=== PATIENT | male | born 1985 | race Hispanic/Latino ===

== ENCOUNTER 2017-05-20 11:17 | Inpatient (IN) | payer MEDICAID, OTHER ==
[2017-05-20 11:20] VITALS: BMI 24.3
--- NOTE | 2017-05-20 11:25 | ED PDOC ---
HPI: Psych/Substance Abuse Time Seen by Provider: 05/20/17 11:24 Chief Complaint (Provider): crisis eval History Per: Patient, EMS Additional Complaint(s): 32 year old male presents to ED for crisis eval. Patient states he is feeling suicidal because he lives with his mother and she has bipolar disorder and, " she drives me crazy." Patient offers no acute medical complaints at this time. He denies alcohol or drug use. Patient states his plan would be to overdose on his meds. Past Medical History Reviewed: Historical Data Vital Signs: Last Vital Signs Temp 98.6 F 05/20/17 11:19 Pulse 74 05/20/17 11:19 Resp 16 05/20/17 11:19 BP 122/81 05/20/17 11:19 Pulse Ox 100 05/20/17 11:19 - Medical History PMH: Anxiety, Back Problems (scoliosis), Depression, Hypercholesterolemia, Schizophrenia - Surgical History Surgical History: No Surg Hx - Family History Family History: States: No Known Family Hx - Living Arrangements Living Arrangements: With Family - Social History Current smoker - smoking cessation education provided: No Alcohol: None Drugs: Denies - Home Medications Home Medications: Ambulatory Orders Medication Instructions Recorded Benztropine Mesylate [Cogentin] 1 mg PO HS 09/24/14 FLUoxetine [Prozac] 40 mg PO HS 09/24/14 Risperidone [Risperdal] 3 mg PO HS 09/24/14 Albuterol HFA [Ventolin HFA 90 1 puff IH Q4 PRN 03/16/16 mcg/actuation (8 g)] Fluticasone Propionate [Flonase] 1 spr NS BID PRN 03/16/16 Loratadine [Claritin] 10 mg PO DAILY PRN 03/16/16 Montelukast [Singulair] 10 mg PO HS 03/16/16 Olopatadine HCl [Pataday] 2.5 ml OU ASDIR #1 drops 04/26/16 - Allergies Allergies/Adverse Reactions: Allergies Allergy/AdvReac Type Severity Reaction Status Date / Time No Known Allergies Allergy Verified 08/19/15 23:00 Review of Systems ROS Statement: Except As Marked, All Systems Reviewed And Found Negative Psych: Positive for: Suicidal ideation Physical Exam - Reviewed Nursing Documentation Reviewed: Yes Vital Signs Reviewed: Yes - Physical Exam Appears: Positive for: Well, Non-toxic, No Acute Distress Skin: Negative for: Rash Eye Exam: Positive for: Normal appearance Cardiovascular/Chest: Positive for: Regular Rate, Rhythm Respiratory: Positive for: Normal Breath Sounds Gastrointestinal/Abdominal: Positive for: Soft. Negative for: Tenderness, Distended, Guarding, Rebound Neurologic/Psych: Positive for: Alert, Oriented - Laboratory Results Result Diagrams: 05/20/17 11:45 05/20/17 11:45 - ECG O2 Sat by Pulse Oximetry: 100 Pulse Ox Interpretation: Normal Medical Decision Making Medical Decision Makin32 year old here for crisis eval Plan: Crisis consult Patient was seen at bedside by crisis counselor, he does not need 1:1. As per crisis counselor and psychiatrist automation lead, Dr. Chaudhary, patient does meet criteria for psych admission. Plan: CBC CMP UA UDS BAL CXR Diagnostic test results were reviewed. Patient has UTI. Initial dose of Cipro 500 mg given in ED. Order was written to administer 500 mg Cipro twice a day while admitted. Patient is medically stable for psychiatric admission. Disposition - Clinical Impression Clinical Impression: Schizoaffective disorder, Urinary tract infection - Patient ED Disposition Is Patient to be Admitted: Yes - Disposition Disposition Time: 14:06 Condition: STABLE - Pt Status Changed To: Hospital Disposition Of: Inpatient - Admit Certification Admit to Inpatient:: After my assessment, the patient will require hospitalization for at least two midnights. This is because of the severity of symptoms shown, intensity of services needed, and/or the medical risk in this patient being treated as an outpatient. Results - Lab Results Lab Results: 05/20/17 05/20/17 05/20/17 11:45 11:45 11:45 WBC 6.4 RBC 5.03 Hgb 15.2 Hct 45.1 MCV 89.7 MCH 30.2 MCHC 33.6 RDW 12.9 Plt Count 211 MPV 9.4 Neut % (Auto) 67.3 Lymph % (Auto) 21.1 Cottle % (Auto) 7.5 Eos % (Auto) 3.5 Baso % (Auto) 0.6 Neut # 4.3 Lymph # 1.4 Cottle # 0.5 Eos # 0.2 Baso # 0.0 Sodium Potassium Chloride Carbon Dioxide Anion Gap BUN Creatinine Est GFR ( Amer) Est GFR (Non-Af Amer) Random Glucose Calcium Total Bilirubin AST ALT Alkaline Phosphatase Total Protein Albumin Globulin Albumin/Globulin Ratio Urine Color Yellow Urine Clarity Cloudy Urine pH 8.0 Ur Specific [place] 1.021 Urine Protein 30 Urine Glucose (UA) Neg Urine Ketones Negative Urine Blood Negative Urine Nitrate Negative Urine Bilirubin Negative Urine Urobilinogen 0.2-1.0 Ur Leukocyte Esterase Neg Urine RBC (Auto) 4 H Urine WBC Clumps (Auto) Few H Urine Microscopic WBC 22 H Urine Bacteria Rare Urine Yeast (Budding) Many H Urine Opiates Screen Negative Urine Methadone Screen Negative Ur Barbiturates Screen Negative Ur Phencyclidine Scrn Negative Ur Amphetamines Screen Negative U Benzodiazepines Scrn Negative U Oth Cocaine Metabols Negative U Cannabinoids Screen Negative Alcohol, Quantitative 05/20/17 11:45 WBC RBC Hgb Hct MCV MCH MCHC RDW Plt Count MPV Neut % (Auto) Lymph % (Auto) Cottle % (Auto) Eos % (Auto) Baso % (Auto) Neut # Lymph # Cottle # Eos # Baso # Sodium 139 Potassium 4.2 Chloride 104 Carbon Dioxide 24 Anion Gap 15 BUN 15 Creatinine 0.8 Est GFR ( Amer) > 60 Est GFR (Non-Af Amer) > 60 Random Glucose 92 Calcium 9.5 Total Bilirubin 1.8 H AST 77 H ALT 68 Alkaline Phosphatase 79 Total Protein 8.0 Albumin 4.7 Globulin 3.3 Albumin/Globulin Ratio 1.4 Urine Color Urine Clarity Urine pH Ur Specific [place] Urine Protein Urine Glucose (UA) Urine Ketones Urine Blood Urine Nitrate Urine Bilirubin Urine Urobilinogen Ur Leukocyte Esterase Urine RBC (Auto) Urine WBC Clumps (Auto) Urine Microscopic WBC Urine Bacteria Urine Yeast (Budding) Urine Opiates Screen Urine Methadone Screen Ur Barbiturates Screen Ur Phencyclidine Scrn Ur Amphetamines Screen U Benzodiazepines Scrn U Oth Cocaine Metabols U Cannabinoids Screen Alcohol, Quantitative < 10
[2017-05-20 12:03] LABS: BASO % 0.6 % (0.0-2.0); EOS # 0.2 K/uL (0.0-0.7); EOS % 3.5 % (0.0-4.0); HEMOGLOBIN 15.2 g/dL (12.0-18.0); LYMPH # 1.4 K/uL (1.0-4.3); LYMPH % 21.1 % (20.0-40.0); MEAN CELL VOLUME 89.7 fl (80.0-94.0); MEAN CORPUSCULAR HEMOGLOBIN 30.2 pg (27.0-31.0); MEAN CORPUSCULAR HGB CONC 33.6 g/dL (33.0-37.0); MEAN PLATELET VOLUME 9.4 fl (7.2-11.7); MONO # 0.5 K/uL (0.0-0.8); MONO % 7.5 % (0.0-10.0); NEUT # 4.3 K/uL (1.8-7.0); NEUT % 67.3 % (50.0-75.0); NRBC % 0.2 % (0.0-0.0); RBC 5.03 Mil/uL (4.40-5.90); RED CELL DISTRIBUTION WIDTH 12.9 % (11.5-14.5); WHITE BLOOD COUNT 6.4 K/uL (4.8-10.8)
[2017-05-20 12:08] LABS: URINE BACTERIA RARE (<OCC); URINE BILIRUBIN NEGATIVE (NEGATIVE); URINE BLOOD NEGATIVE (NEGATIVE); URINE CLARITY CLOUDY (Clear); URINE COLOR YELLOW (YELLOW); URINE GLUCOSE (UA) NEG (Normal); URINE LEUKOCYTE ESTERASE NEG Leu/uL (Negative); URINE NITRATE NEGATIVE (NEGATIVE); URINE PROTEIN 30 mg/dL (NEGATIVE); URINE UROBILINOGEN 0.2-1.0 mg/dL (0.2-1.0); WBC CLUMPS FEW /hpf
[2017-05-20 12:14] LABS: ALB/GLOB RATIO 1.4 (1.0-2.1); ALBUMIN 4.7 g/dL (3.5-5.0); ALT/SGPT 68 U/L (21-72); AST/SGOT 77 U/L (17-59); BLOOD UREA NITROGEN 15 mg/dl (9-20); CALCIUM 9.5 mg/dL (8.4-10.2); GFR AFRICAN-AMERICAN > 60; GFR NON-AFRICAN AMERICAN > 60
--- NOTE | 2017-05-20 12:28 | RAD ---
HISTORY: clearance COMPARISON: Comparison made with prior study 03/15/2016 FINDINGS: LUNGS: Poor inspiration with low lung volumes, mild crowded bronchovascular markings and mild bibasilar atelectasis. PLEURA: No significant pleural effusion identified, no pneumothorax apparent. CARDIOVASCULAR: Heart size is upper limits of normal/ borderline enlarged OSSEOUS STRUCTURES: No significant abnormalities. VISUALIZED UPPER ABDOMEN: Normal. OTHER FINDINGS: None. IMPRESSION: Poor inspiration with low lung volumes, mild crowded bronchovascular markings and mild bibasilar atelectasis.
[2017-05-20 12:32] LABS: BARBITURATES, UR NEGATIVE (NEGATIVE); BENZODIAZEPINES, UR NEGATIVE (NEGATIVE); OPIATES, UR NEGATIVE (NEGATIVE); PHENCYCLIDINE, UR NEGATIVE (NEGATIVE)
[2017-05-20 14:08] VITALS: O2SAT 100
[2017-05-20] MEDS ORDERED: Magnesium Hydroxide Susp 30 ml UD PO PRN (14:41)
[2017-05-20] MEDS ORDERED: Alum-Mag Hydrox-Simethicone Susp (30 mL) PO PRN (14:41)
[2017-05-20] MEDS ORDERED: DiphenhydrAMINE 50 mg/ml Inj IM PRN (14:41)
[2017-05-20 17:52] LABS: HDL CHOLESTEROL 48 MG/DL (30-70)
[2017-05-20 18:03] LABS: LDL CHOLESTEROL 101 mg/dL (0-129)
[2017-05-21 08:04] LABS: T4 7.74 ug/dl (5.5-11.0)
[2017-05-21] MEDS ORDERED: Risperidone M tab 1 MG PO SCH (09:00)
--- NOTE | 2017-05-21 12:40 | PCM.PSYCH ---
Initial Psychiatric Evaluation - Initial Psychiatric Evaluation Type of Admission: Voluntary Legal Status: Capacity Chief Complaint (in patient's own words): i just need to sleep Patient's Reaction to Hospitalization: cooperative History of Present Illness and Precipitating Events: 32 male with history of schizoaffective disorder. he is presenting for admission due to lack of sleep. states his mother is manic and not sleeping and keeping him awake for the last three days. pt reports due to lack of sleep he is becoming paranoid, agitated and acutely suicidal. pt states he does not need a medication change and is hopeful he will feel better when he sleep. he did sleep last night and states he does not feel suicidal currently. Current Medications: Active Medications Generic Name Dose Route Start Last Admin Trade Name Freq PRN Reason Stop Dose Admin Acetaminophen 650 mg 05/20/17 14:41 05/21/17 08:27 Tylenol 325mg Tab PO 650 mg Q4 PRN Administration Pain, moderate (4-7) Al Hydrox/Mg Hydrox/Simethicone 30 ml 05/20/17 14:41 Maalox Plus 30 Ml PO Q4 PRN Dyspepsia Benztropine Mesylate 1 mg 05/20/17 22:00 05/20/17 21:01 Cogentin PO 1 mg HS ELMA Administration Ciprofloxacin 500 mg 05/20/17 17:00 05/21/17 08:26 Cipro PO 500 mg BID ELMA Administration Diphenhydramine HCl 50 mg 05/20/17 14:41 Benadryl IM Q6 PRN Extrapyramidal S/S Unable PO Diphenhydramine HCl 50 mg 05/20/17 14:41 Benadryl PO Q6 PRN Extrapyramidal Symptoms Fluoxetine HCl 40 mg 05/21/17 09:00 05/21/17 08:27 Prozac PO 40 mg DAILY ELMA Administration Haloperidol 5 mg 05/20/17 14:41 Haldol PO Q4 PRN Agitation Haloperidol Lactate 5 mg 05/20/17 14:41 Haldol IM Q4 PRN Agitation, Unable to Take PO Lorazepam 2 mg 05/20/17 14:41 Ativan IM Q4 PRN Anxiety/Agitation,Unable PO Lorazepam 2 mg 05/20/17 14:41 Ativan PO Q4 PRN Anxiety/Agitation Magnesium Hydroxide 30 ml 05/20/17 14:41 Milk Of Magnesia PO HS PRN Constipation Risperidone 3 mg 05/20/17 22:00 05/20/17 21:01 Risperdal Tab PO 3 mg HS ELMA Administration Trazodone HCl 50 mg 05/20/17 14:59 Desyrel PO HS PRN Insomnia Past Psychiatric History - Past Psychiatric History Previous Treatment History: Inpatient Prior Professional Help: has providers, feels hes stable on meds History of Abuse: denies History of ETOH/Drug Use: denies use of alcohol, tobacco or other illicit substances History of Family Illness: mother has schizoaffectve disorder Pertinent Medical Hx (Current Medical&Sleep Prob, Allergies): Allergies Allergy/AdvReac Type Severity Reaction Status Date / Time No Known Allergies Allergy Verified 08/19/15 23:00 Benztropine Mesylate [Cogentin] 1 mg PO HS 09/24/14 FLUoxetine [Prozac] 40 mg PO HS 09/24/14 Risperidone [Risperdal] 3 mg PO HS 09/24/14 Albuterol HFA [Ventolin HFA 90 mcg/actuation (8 g)] 1 puff IH Q4 PRN 03/16/16 Fluticasone Propionate [Flonase] 1 spr NS BID PRN 03/16/16 Loratadine [Claritin] 10 mg PO DAILY PRN 03/16/16 Montelukast [Singulair] 10 mg PO HS 03/16/16 Olopatadine HCl [Pataday] 2.5 ml OU ASDIR #1 drops 04/26/16 Review of Systems - Psychiatric Psychiatric: As Per HPI, Abnormal Sleep Pattern, Anxiety, Difficulty Concentrating, Irritability, Suicidal Ideation (denies at this time, but was saying he would kill himself if he returned home) Mental Status Examination - Personal Presentation Personal Presentation: Looks stated age Additional comments: unshaven, unkempt - Affect Affect: Constricted - Motor Activity Motor Activity: Calm - Reliability in Providing Information Reliability in Providing Information: Fair - Speech Speech: Organized - Mood Mood: Depressed - Formal Thought Process Formal Thought Process: No Impairment - Hallucinations/Delusions Hallucinations: Visual - Obsessions/Compulsions Obsessions: No Compulsions: No - Cognitive Functions Orientation: Person, Place, Situation, Time Sensorium: Alert Attention/Concentration: Attentive Abstract Thinking: [place] Estimate of Intelligence: Average Judgement: Intact, as evidence by: Insight regarding need for hospitalization Memory: Recent intact, as evidence by: Ability to recall events of the day, Remote intact, as evidenced by: Abilit to recall sig. life events - Risk Risk: Suicidal (denies current plan or intent) - Strength & Assets Inventory Strength & Assets Inventory: Employment history, Cooperative - Limitations Limitations: Other (family members mental illness is active) DSM 5 DX - DSM 5 DSM 5 Diagnosis: schizoaffective disorder, depressive type - Recommended/Plan of Treatment Treatment Recommendations and Plan of Treatment: admit to [facility] for safety and observation gather collateral information provide supportive therapy adjust medications- will continue home meds disposition planning hospitalist consult Projected ELOS: 3-5 days Prognosis: fair - Smoking Cessation Smoking Cessation Initiated: No Reason for not providing: does not smoke
--- NOTE | 2017-05-21 14:17 | CP.PCM.CON ---
History of Present Illness - History of Present Illness History of Present Illness: Reason for consult: per hospital protocol HPI 32 year old male with no past medical history admitted to psychiatry for schizoaffective disorder. No other complaints at this time. ROS: per HPI, 12 systems reviewed and negative PMH: denies PSH: denies FH: denies SH: denies tobacco, ETOH, IVDU Meds: as below Allergies: NKDA Vitals: reviewed and currently stable Exam: GEN: WDWN, alert, cooperative HEENT: NCAT, PERRL, EOMI NECK: supple, no JVD, no lymphadenopathy CARDIAC: +S1S2 RRR LUNG: CTAB No WRR ABD: SOFT NT ND BSX4 NO MASSES NO HSM EXT: +pedal pulses, equal strength NEURO: AAOx3 SKIN warm, dry PSYCH normal mood, normal affect Labs: 05/20/17 11:45 05/20/17 11:45 Active Medications: Allergies No Known Allergies Allergy (Verified 08/19/15 23:00) Height & Weight Height 6 ft 4 in Weight 200 lb Start Date/Time Active Medications 05/20/17 14:41 Acetaminophen [Tylenol 325mg tab] 650 mg PO Q4 PRN Aluminum Hydroxide/Magnesium [Maalox Plus 30 ml] 30 ml PO Q4 PRN DiphenhydrAMINE [Benadryl] 50 mg IM Q6 PRN DiphenhydrAMINE [Benadryl] 50 mg PO Q6 PRN Haloperidol Lactate [Haldol] 5 mg IM Q4 PRN Haloperidol [Haldol] 5 mg PO Q4 PRN LORazepam [Ativan] 2 mg IM Q4 PRN LORazepam [Ativan] 2 mg PO Q4 PRN Magnesium Hydroxide [Milk Of Magnesia] 30 ml PO HS PRN 05/20/17 14:59 traZODone [Desyrel] 50 mg PO HS PRN 05/20/17 17:00 Ciprofloxacin [Cipro] 500 mg PO BID 05/20/17 22:00 Benztropine [Cogentin] 1 mg PO HS risperiDONE [RisperDAL Tab] 3 mg PO HS 05/21/17 09:00 FLUoxetine [Prozac] 40 mg PO DAILY 05/21/17 17:45 Ibuprofen [Motrin Tab] 600 mg PO Q6 PRN Assessment and Plan: 32 year old male with no past medical history admitted to psychiatry for schizoaffective disorder. No other complaints at this time. Schizoaffective Disorder management per psych Past Patient History - Past Social History Alcohol: None Drugs: Denies - CARDIAC Hx Hypercholesterolemia: Yes - PULMONARY Hx Tuberculosis: No - NEUROLOGICAL Hx Seizures: No - HEENT Hx HEENT Problems: No - RENAL Hx Chronic Kidney Disease: No - ENDOCRINE/METABOLIC Hx Endocrine Disorders: No - HEMATOLOGICAL/ONCOLOGICAL Hx Human Immunodeficiency Virus (HIV): No - INTEGUMENTARY Hx Dermatological Problems: No - MUSCULOSKELETAL/RHEUMATOLOGICAL Hx Musculoskeletal Disorders: Yes - GASTROINTESTINAL Hx Gastrointestinal Disorders: No - GENITOURINARY/GYNECOLOGICAL Hx Sexually Transmitted Disorders: No - PSYCHIATRIC Hx Depression: Yes - SURGICAL HISTORY Hx Surgeries: No - ANESTHESIA Hx Anesthesia: Yes Meds Allergies/Adverse Reactions: Allergies Allergy/AdvReac Type Severity Reaction Status Date / Time No Known Allergies Allergy Verified 08/19/15 23:00 - Medications Medications: Current Medications Acetaminophen (Tylenol 325mg Tab) 650 mg PO Q4 PRN PRN Reason: Pain, moderate (4-7) Last Admin: 05/21/17 08:27 Dose: 650 mg Al Hydrox/Mg Hydrox/Simethicone (Maalox Plus 30 Ml) 30 ml PO Q4 PRN PRN Reason: Dyspepsia Benztropine Mesylate (Cogentin) 1 mg PO HS [facility] Last Admin: 05/20/17 21:01 Dose: 1 mg Ciprofloxacin (Cipro) 500 mg PO BID [facility] Last Admin: 05/21/17 08:26 Dose: 500 mg Diphenhydramine HCl (Benadryl) 50 mg IM Q6 PRN PRN Reason: Extrapyramidal S/S Unable PO Diphenhydramine HCl (Benadryl) 50 mg PO Q6 PRN PRN Reason: Extrapyramidal Symptoms Fluoxetine HCl (Prozac) 40 mg PO DAILY [facility] Last Admin: 05/21/17 08:27 Dose: 40 mg Haloperidol (Haldol) 5 mg PO Q4 PRN PRN Reason: Agitation Haloperidol Lactate (Haldol) 5 mg IM Q4 PRN PRN Reason: Agitation, Unable to Take PO Lorazepam (Ativan) 2 mg IM Q4 PRN PRN Reason: Anxiety/Agitation,Unable PO Lorazepam (Ativan) 2 mg PO Q4 PRN PRN Reason: Anxiety/Agitation Magnesium Hydroxide (Milk Of Magnesia) 30 ml PO HS PRN PRN Reason: Constipation Risperidone (Risperdal Tab) 3 mg PO HS [facility] Last Admin: 05/20/17 21:01 Dose: 3 mg Trazodone HCl (Desyrel) 50 mg PO HS PRN PRN Reason: Insomnia Results - Vital Signs Recent Vital Signs: Last Vital Signs Temp 97.6 F 05/20/17 14:02 Pulse 78 05/20/17 14:02 Resp 20 05/20/17 14:02 BP 128/78 05/20/17 14:02 Pulse Ox 100 05/20/17 14:07 - Labs Result Diagrams: 05/20/17 11:45 05/20/17 11:45 Labs: Laboratory Results - last 24 hr 05/20/17 05/20/17 05/21/17 16:30 16:30 06:00 Hemoglobin A1c 5.9 Triglycerides 36 64 D Cholesterol 175 176 LDL Cholesterol Direct 101 98 HDL Cholesterol 48 45 Thyroxine (T4) 7.74
[2017-05-22 12:42] VITALS: BP 123/76; PULSE 70; RESP 18; TEMP 97.7
--- NOTE | 2017-05-22 13:41 | PCM.PYCHDC ---
Mental Status Examination - Mental Status Examination Orientation: Person, Place, Situation, Time Memory: Intact Mood: Neutral Affect: Broad Speech: Appropriate Attention: WNL Concentration: WNL Association: WNL Fund of Knowledge: WNL Formal Thought Process: No Impairment Description of patient's judgement and insight: fair Psychotic Thoughts and Behaviors: denies any a/v hallucinations Suicidal Ideation: No Current Homicidal Ideation?: No Plan: pt denies any suicidal or homicidal thoughts/plans or intent Discharge Summary - Discharge Note Reason for Hospitalization: pt reported not being able to sleep and feeling suicidal Laboratory Data: Abnormal Lab Results 05/21/17 06:00 Hemoglobin A1c 5.9 Consultations:: List each consultation separately and include: 1. Reason for request. 2. Findings. 3. Follow-up Consultations: seen by hospitalist Summary of Hospital Course include:: 1. Description of specific treatment plan utilized for patients during their course of treatmen. 2. Summarize the time- course for resolution of acute symptoms and/or regressed behaviors. 3. Describe issues identified and worked on during hospitalization. 4. Describe medication utilized. 5. Describe medical problems identified and treated. 6. Reassessment of suicide risk Summary of Hospital Course: 32 male with history of schizoaffective disorder. he is presenting for admission due to lack of sleep. states his mother is manic and not sleeping and keeping him awake for the last three days. pt reports due to lack of sleep he is becoming paranoid, agitated and acutely suicidal. pt states he does not need a medication change and is hopeful he will feel better when he sleep. he did sleep last night and states he does not feel suicidal currently. hospital course pt was admitted to [facility] and oriented to the unit. pt was placed on routine safety protocols. pt was started on his home medications. he was able to sleep on the unit. he was seen in treatment team and asked to be discharged so he could return to work on 05/23/17. at the time of discharge his thoughts were logical and his mood was neutral. he was denying any psychotic symptoms. he was denying any suicidal or homicidal thoughts. he was agreeing to follow up with his outpatient providers after his discharge. - Final Diagnosis (DSM 5) Condition upon Discharge: STABLE DSM 5: schizoaffective disorder Disposition: HOME/ ROUTINE Follow-up Treatment Plan: follow up with aftercare appointments as directed take medications as prescribed do not use alcohol, tobacco or other illicit substances call 911 if any suicidal or homicidal thoughts see your primary care doctor regarding your uti that was treated here by hospitalist pt has his psych meds at home and no scripts given except for enough to complete course of cipro Prescriptions/Medication Reconciliation: Ciprofloxacin [Cipro] 500 mg PO BID #10 tab - Smoking Cessation Smoking Cessation Medication prescribed: No Reason for not providing: doesn't smoke - Antipsychotic Medications Pt discharged on 2 or more routine antipsychotic medications: No
== END 2017-05-22 14:19 | disposition home or self-care (01) | DRG 430 ==
LOC: H.ER 11:17 → H.ERHOLD 12:40 → H.PSYCH 14:05
PROVIDERS: ADMIT Psychiatry & Neurology Psychiatry; ATTEND Psychiatry & Neurology Psychiatry
PROC: GZ51ZZZ Individual Psychotherapy, Behavioral (ICD-10-PCS; principal; 2017-05-20)
DX: F25.1 Schizoaffective disorder, depressive type (principal); R45.851 Suicidal ideations; M41.9 Scoliosis, unspecified; N39.0 Urinary tract infection, site not specified; E78.00 Pure hypercholesterolemia, unspecified; F31.9 Bipolar disorder, unspecified; F41.9 Anxiety disorder, unspecified; F32.9 Major depressive disorder, single episode, unspecified

== ENCOUNTER 2017-06-25 13:42 | Emergency (ER) | payer MEDICAID, OTHER ==
[2017-06-25 13:42] VITALS: BMI 24.3
[2017-06-25 13:47] VITALS: BP 142/91; PULSE 79; RESP 18; TEMP 99; O2SAT 99
--- NOTE | 2017-06-25 14:21 | ED PDOC ---
HPI: Psych/Substance Abuse Time Seen by Provider: 06/25/17 14:10 Chief Complaint (Nursing): Psychiatric Evaluation Chief Complaint (Provider): DEPRESSION Additional Complaint(s): 32yo M in Ed for eval of mental health d/o. EMS called to household. pt called EMS stating that his mother is suicidal, however when EMS arrived stated that she isn't suicidal. EMS explained they can't take mother against her will if not posing threat to self or others, pt became upset and stated he wanted to kill himself. Pt in ED denies wanting to hurt himself. admits he is having trouble with his mother and wants mother to move out of home. Past Medical History Reviewed: Historical Data, Nursing Documentation, Vital Signs Vital Signs: Last Vital Signs Temp 99.0 F 06/25/17 13:43 Pulse 79 06/25/17 13:43 Resp 18 06/25/17 13:43 BP 142/91 H 06/25/17 13:43 Pulse Ox 99 06/25/17 13:43 - Medical History PMH: Anxiety, Back Problems (scoliosis), Depression, Hypercholesterolemia, Schizophrenia Denies: Diabetes, Hepatitis, HIV, HTN, Chronic Kidney Disease, Seizures, Sexually Transmitted Disease - Family History Family History: States: Unknown Family Hx - Immunization History Hx Tetanus Toxoid Vaccination: No Hx Influenza Vaccination: No Hx Pneumococcal Vaccination: No - Home Medications Home Medications: Ambulatory Orders Medication Instructions Recorded Benztropine Mesylate [Cogentin] 1 mg PO HS 09/24/14 FLUoxetine [Prozac] 40 mg PO HS 09/24/14 Risperidone [Risperdal] 3 mg PO HS 09/24/14 Albuterol HFA [Ventolin HFA 90 1 puff IH Q4 PRN 03/16/16 mcg/actuation (8 g)] Fluticasone Propionate [Flonase] 1 spr NS BID PRN 03/16/16 Loratadine [Claritin] 10 mg PO DAILY PRN 03/16/16 Montelukast [Singulair] 10 mg PO HS 03/16/16 Olopatadine HCl [Pataday] 2.5 ml OU ASDIR #1 drops 04/26/16 Ciprofloxacin [Cipro] 500 mg PO BID #10 tab 05/22/17 Ibuprofen [Motrin Tab] 600 mg PO Q6 PRN tab 05/22/17 - Allergies Allergies/Adverse Reactions: Allergies Allergy/AdvReac Type Severity Reaction Status Date / Time No Known Allergies Allergy Verified 08/19/15 23:00 Review of Systems ROS Statement: Except As Marked, All Systems Reviewed And Found Negative Psych: Negative for: Anxiety, Depression, Psychosis, Suicidal ideation, Withdrawal Physical Exam - Reviewed Nursing Documentation Reviewed: Yes Vital Signs Reviewed: Yes - Physical Exam Appears: Positive for: Well, Non-toxic, No Acute Distress Skin: Positive for: Normal Color, Warm, DRY Eye Exam: Positive for: Normal appearance Cardiovascular/Chest: Positive for: Regular Rate, Rhythm Respiratory: Positive for: CNT, Normal Breath Sounds Gastrointestinal/Abdominal: Positive for: Normal Exam, Bowel Sounds, Soft Neurologic/Psych: Positive for: Alert, Oriented, Mood/Affect - ECG O2 Sat by Pulse Oximetry: 99 Medical Decision Making Medical Decision Making: pt was evulated by crisis and cleared for d/c by [facility] Disposition - Clinical Impression Clinical Impression: Adjustment disorder - Patient ED Disposition Is Patient to be Admitted: No Counseled Patient/Family Regarding: Diagnosis, Need For Followup - Disposition Disposition: Routine/Home Disposition Time: 14:23 Condition: STABLE Instructions: Mood Disorders (ED) Forms: [email or web address] ([place]in)
== END 2017-06-25 15:20 | disposition home or self-care (01) ==
LOC: H.ER 13:42
DX: F43.20 Adjustment disorder, unspecified (principal)

== ENCOUNTER 2017-11-22 16:46 | Inpatient (IN) | payer MEDICAID, OTHER ==
[2017-11-22 16:47] VITALS: BMI 24.3
--- NOTE | 2017-11-22 17:42 | ED PDOC ---
HPI: Psych/Substance Abuse Time Seen by Provider: 11/22/17 17:05 Chief Complaint (Nursing): Psychiatric Evaluation Chief Complaint (Provider): SI/HI Additional Complaint(s): 32yo M in Ed for eval of SI with plan of OD on all RX at home, and HI-thoughts of hurting everyone around him without actual plan. Pt admits he has been without pysch meds x 2-3days states unable to afford it with insurance. no hallucinations. Past Medical History Reviewed: Historical Data, Nursing Documentation, Vital Signs Vital Signs: Last Vital Signs Temp 98.5 F 11/22/17 16:49 Pulse 57 L 11/22/17 17:34 Resp 18 11/22/17 17:34 BP 117/67 11/22/17 16:49 Pulse Ox 93 L 11/22/17 17:34 - Medical History PMH: Anxiety, Back Problems (scoliosis), Depression, Hypercholesterolemia, Hyperlipidemia, Schizophrenia Denies: Diabetes, Hepatitis, HIV, HTN, Chronic Kidney Disease, Seizures, Sexually Transmitted Disease - Family History Family History: States: Unknown Family Hx - Immunization History Hx Tetanus Toxoid Vaccination: No Hx Influenza Vaccination: No Hx Pneumococcal Vaccination: No - Home Medications Home Medications: Ambulatory Orders Medication Instructions Recorded Benztropine Mesylate [Cogentin] 1 mg PO HS 09/24/14 FLUoxetine [Prozac] 40 mg PO HS 09/24/14 Risperidone [Risperdal] 3 mg PO HS 09/24/14 Albuterol HFA [Ventolin HFA 90 1 puff IH Q4 PRN 03/16/16 mcg/actuation (8 g)] Fluticasone Propionate [Flonase] 1 spr NS BID PRN 03/16/16 Loratadine [Claritin] 10 mg PO DAILY PRN 03/16/16 Montelukast [Singulair] 10 mg PO HS 03/16/16 Olopatadine HCl [Pataday] 2.5 ml OU ASDIR #1 drops 04/26/16 Ciprofloxacin [Cipro] 500 mg PO BID #10 tab 05/22/17 Ibuprofen [Motrin Tab] 600 mg PO Q6 PRN tab 05/22/17 - Allergies Allergies/Adverse Reactions: Allergies Allergy/AdvReac Type Severity Reaction Status Date / Time No Known Allergies Allergy Verified 11/22/17 16:48 Review of Systems ROS Statement: Except As Marked, All Systems Reviewed And Found Negative Psych: Positive for: Depression Physical Exam - Reviewed Nursing Documentation Reviewed: Yes Vital Signs Reviewed: Yes - Physical Exam Appears: Positive for: Well, Non-toxic, No Acute Distress Skin: Positive for: Normal Color, Warm, DRY Eye Exam: Positive for: EOMI, Normal appearance, PERRL Cardiovascular/Chest: Positive for: Regular Rate, Rhythm Respiratory: Positive for: CNT, Normal Breath Sounds Neurologic/Psych: Positive for: Alert, Oriented, Mood/Affect (falt) - Laboratory Results Result Diagrams: 11/22/17 18:00 11/22/17 18:00 - ECG O2 Sat by Pulse Oximetry: 93 - Progress ED Course And Treament: Orders Category Date Time Status ALCOHOL SERUM Stat Chem 11/22/17 17:24 Ordered COMP METABOLIC PANEL Stat Chem 11/22/17 17:24 Ordered DRUG SCREEN, URINE Stat Chem 11/22/17 17:24 Ordered Crisis Evaluation As Ordered Cons 11/22/17 17:06 Ordered CBC (WITH DIFFERENTIAL) Stat LÓPEZ 11/22/17 17:24 Ordered ED 1:1 Observation CONT Pt Care 11/22/17 17:06 Active URINALYSIS Stat URINALYSIS 11/22/17 17:24 Ordered Medical Decision Making Medical Decision Making: pt will be adm itted to [facility] floor for schizoaffective d/o stable for admission. Disposition - Clinical Impression Clinical Impression: Schizoaffective disorder - Patient ED Disposition Is Patient to be Admitted: Yes - Disposition Disposition Time: 18:44 Condition: STABLE - Pt Status Changed To: Hospital Disposition Of: Inpatient - Admit Certification Admit to Inpatient:: After my assessment, the patient will require hospitalization for at least two midnights. This is because of the severity of symptoms shown, intensity of services needed, and/or the medical risk in this patient being treated as an outpatient. - POA Present On Arrival: None
[2017-11-22 18:25] LABS: BASO # 0.1 K/uL (0.0-0.2); BASO % 0.7 % (0.0-2.0); EOS # 0.3 K/uL (0.0-0.7); HEMOGLOBIN 13.9 g/dL (12.0-18.0); LYMPH # 1.6 K/uL (1.0-4.3); LYMPH % 18.5 % (20.0-40.0); MEAN CELL VOLUME 90.3 fl (80.0-94.0); MEAN CORPUSCULAR HEMOGLOBIN 29.4 pg (27.0-31.0); MEAN CORPUSCULAR HGB CONC 32.6 g/dL (33.0-37.0); MEAN PLATELET VOLUME 9.7 fl (7.2-11.7); MONO # 0.4 K/uL (0.0-0.8); NEUT # 6.4 K/uL (1.8-7.0); NEUT % 72.8 % (50.0-75.0); RBC 4.71 Mil/uL (4.40-5.90); RED CELL DISTRIBUTION WIDTH 12.6 % (11.5-14.5); WHITE BLOOD COUNT 8.8 K/uL (4.8-10.8)
[2017-11-22 18:43] LABS: ALB/GLOB RATIO 1.2 (1.0-2.1); ALBUMIN 4.1 g/dL (3.5-5.0); ALT/SGPT 65 U/L (21-72); AST/SGOT 86 U/L (17-59); BLOOD UREA NITROGEN 12 mg/dl (9-20); CALCIUM 9.6 mg/dL (8.4-10.2); GFR AFRICAN-AMERICAN > 60; GFR NON-AFRICAN AMERICAN > 60
[2017-11-22 19:14] LABS: URINE AMORPHOUS SEDIMENT OCC /ul (<OCC); URINE BACTERIA RARE (<OCC); URINE BILIRUBIN NEGATIVE (NEGATIVE); URINE BLOOD NEGATIVE (NEGATIVE); URINE CALCIUM OXALATE CRYSTALS RARE /hpf (<OCC); URINE CLARITY CLOUDY (Clear); URINE COLOR YELLOW (YELLOW); URINE GLUCOSE (UA) NEG (Normal); URINE LEUKOCYTE ESTERASE NEG Leu/uL (Negative); URINE NITRATE NEGATIVE (NEGATIVE); URINE PROTEIN NEGATIVE (NEGATIVE); URINE UROBILINOGEN 0.2-1.0 mg/dL (0.2-1.0)
[2017-11-22 19:26] LABS: BARBITURATES, UR NEGATIVE (NEGATIVE); BENZODIAZEPINES, UR NEGATIVE (NEGATIVE); OPIATES, UR NEGATIVE (NEGATIVE); PHENCYCLIDINE, UR NEGATIVE (NEGATIVE)
[2017-11-22 19:36] VITALS: O2SAT 97
[2017-11-22] MEDS ORDERED: DiphenhydrAMINE 50 mg/ml Inj IM PRN (22:59)
[2017-11-22] MEDS ORDERED: Alum-Mag Hydrox-Simethicone Susp (30 mL) PO PRN (22:59)
[2017-11-22] MEDS ORDERED: Magnesium Hydroxide Susp 30 ml UD PO PRN (22:59)
--- NOTE | 2017-11-22 23:12 | PCM.BM ---
<Annemarie Arteaga P - Last Filed: 11/22/17 23:10> Treatment Plan Problems - Problems identified on initial assessmt Hopelessness/helplessness Date Initiated: 11/22/17 Time Initiated: 23:11 Assessment reference: NA Status: Active Medication nonadherence Date Initiated: 11/22/17 Time Initiated: 23:11 Assessment reference: NA Status: Active Treatment assets and liabiliti Patient Assests: cooperative, physically healthy, negotiates basic needs, cognitively intact Patient Liabilities: financial problems, poor support system, relationship conflicts - Milieu Protocol Maintain good personal hygiene: daily Encourage regular showers, daily Remind patient to perform daily oral care Conduct patient checks and document Observation sheet: Q15 minutes Maintain personal safety: every shift Educate patient to report safety concerns to staff, every shift Monitor environment for contraband/sharps Medication safety: Monitor for expected outcome, potential side effects: every shift, Assess barriers to learning: every shift, Assess readiness for medication education: every shift <Tyron Cao J - Last Filed: 11/24/17 15:26> Family Contact Family involvement: Family/SO is involved Family contact: Patient declines to allow family contact at present Family contact name: Pt declined - Goals for Treatment Patient goals for treatment: Pt is afraid that his medication insurance coverage is no longer in effect because 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 Pt is also concerned that him and his mother will lose their housing as pt does not have an income and his mother's was drastically cut from $800 to $200 a month. Discharge/Continuing Care - Education Needs Education Needs: Patient Medication, Patient Diagnosis/Disease Process, Patient Coping Skills, Patient Community resources, Patient Personal Hygiene/Grooming, Patient Aftercare Safety Plan - Discharge Discharge Criteria: Tolerates medication w/o severe side effects, Free of Suicidal thoughts, Free of agitation, Normal sleep pattern, Reduction of target symptoms Discharge to:: Home, With Family <Rach Webster - Last Filed: 11/27/17 10:53> - Diagnosis (1) Schizoaffective disorder Status: Acute Interventions: 11/27/17 10:53 psychotherapy pharmacotherapy
--- NOTE | 2017-11-23 08:19 | CARD ---
APPROVED REPORT EKG Measurement Heart [id number] <Conclusion> Sinus bradycardia Otherwise normal ECG
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
[2017-11-23] MEDS ORDERED: BENZTROPINE MESYLATE 1 MG PO SCH (22:00)
[2017-11-24 07:27] LABS: T4 9.12 ug/dl (5.5-11.0)
--- NOTE | 2017-11-24 14:13 | PCM.PYCHPN ---
Psychiatric Progress Note - Psychiatric Progress Note Patient seen today, length of contact: pt evaluated discussed with team chart reviewed Patient Chief Complaint: I am worried we will loose our apartment Problems Identified/Issues Discussed: pt seen on unit appears depressed, anhedonic, pt reported feeling down as he is worried about his mother condition and also because he is facing a lot of financial difficulties and worried about being homeless pt reported his thought process is better as he was restarted on the risperidone denied any currentsuicidal or homicidal ideations, denied perceptual disturbances, no reported side effects of the medications Medical Problems: pt has multiple inpatient hospitalizations DSM 5 Symptoms Update: schizoaffective disorder bipolar Medication Change: No Medical Record Reviewed: No Mental Status Examination - Cognitive Function Orientation: Person Attention: WNL Concentration: WNL Association: WNL Fund of Knowledge: Poor Decription of patient's judgement and insights: partial insight and poor judgment - Mood Mood: Depressed, Anxious - Affect Affect: Depressed - Speech Speech: Soft - Formal Thought Process Formal Thought Process: Circumstantial Psychotic Thoughts and Behaviors: pt denied ay curent perceptual disturbances, non elicited - Suicidal Ideation Suicidal Ideation: No - Homicidal Ideation Homicidal Ideation: No Goal/Treatment Plan - Goal/Treatment Plan Need for Continued Stay: Severe depression anxiety, Discharge may exacerbated symptoms Progress Toward Problem(s) and Goals/Treatment Plan: continue with prozac 40mg daily and risperidone 2mg qhs. cogentin 0.5 mg qhs group and supportive therapy
--- NOTE | 2017-11-25 10:55 | PCM.PYCHPN ---
Psychiatric Progress Note - Psychiatric Progress Note Patient seen today, length of contact: pt evaluated discussed with team chart reviewed Patient Chief Complaint: I feel better today Problems Identified/Issues Discussed: pt seen on unit appears calmer, presenting with better mood and brighter affect , pt denied side effects of medications, denied suicidal or homicidal ideations Medical Problems: pt has multiple inpatient hospitalizations DSM 5 Symptoms Update: schizoaffective disorder Medication Change: No Medical Record Reviewed: No Mental Status Examination - Cognitive Function Orientation: Person Attention: WNL Concentration: WNL Association: WNL Fund of Knowledge: Poor Decription of patient's judgement and insights: partial insight and poor judgment - Mood Mood: Depressed, Anxious - Affect Affect: Depressed - Speech Speech: Soft - Formal Thought Process Formal Thought Process: Circumstantial Psychotic Thoughts and Behaviors: pt denied ay curent perceptual disturbances, non elicited - Suicidal Ideation Suicidal Ideation: No - Homicidal Ideation Homicidal Ideation: No Goal/Treatment Plan - Goal/Treatment Plan Need for Continued Stay: Severe depression anxiety, Discharge may exacerbated symptoms Progress Toward Problem(s) and Goals/Treatment Plan: continue with prozac 40mg daily and risperidone 2mg qhs. cogentin 0.5 mg qhs group and supportive therapy pt at current time requires linkage to case managment to avoid rehospitalization Estimated Date of D/C: 12/01/17
--- NOTE | 2017-11-25 12:54 | RAD ---
HISTORY: routine COMPARISON: Chest radiograph dated 05/20/2017. TECHNIQUE: Chest PA and lateral FINDINGS: LUNGS: No active pulmonary disease. PLEURA: No significant pleural effusion identified. No pneumothorax apparent. CARDIOVASCULAR: Normal. OSSEOUS STRUCTURES: No significant abnormalities. VISUALIZED UPPER ABDOMEN: Normal. OTHER FINDINGS: None. IMPRESSION: No active disease.
--- NOTE | 2017-11-26 12:45 | PCM.PYCHPN ---
Psychiatric Progress Note - Psychiatric Progress Note Patient seen today, length of contact: pt evaluated discussed with team chart reviewed Patient Chief Complaint: I am calmer Problems Identified/Issues Discussed: pt seen on unit appears calmer, presenting with better mood and brighter affect, no changes in sleep or appetite pt denied side effects of medications, denied suicidal or homicidal ideations Medical Problems: pt has multiple inpatient hospitalizations DSM 5 Symptoms Update: schizoaffective disorder Medication Change: No Medical Record Reviewed: Yes Mental Status Examination - Cognitive Function Orientation: Person Attention: WNL Concentration: WNL Association: WNL Fund of Knowledge: Poor Decription of patient's judgement and insights: partial insight and poor judgment - Mood Mood: Depressed, Anxious - Affect Affect: Depressed - Speech Speech: Soft - Formal Thought Process Formal Thought Process: Circumstantial Psychotic Thoughts and Behaviors: pt denied ay curent perceptual disturbances, non elicited - Suicidal Ideation Suicidal Ideation: No - Homicidal Ideation Homicidal Ideation: No Goal/Treatment Plan - Goal/Treatment Plan Need for Continued Stay: Severe depression anxiety, Discharge may exacerbated symptoms Progress Toward Problem(s) and Goals/Treatment Plan: continue with prozac 40mg daily and risperidone 2mg qhs. cogentin 0.5 mg qhs group and supportive therapy pt at current time requires linkage to case management to avoid rehospitalization will attempt linking to [facility] services Estimated Date of D/C: 12/01/17
--- NOTE | 2017-11-27 10:56 | PCM.PYCHPN ---
Psychiatric Progress Note - Psychiatric Progress Note Patient seen today, length of contact: pt evaluated discussed with team chart reviewed Patient Chief Complaint: I am feeling better Problems Identified/Issues Discussed: pt seen on unit appears calmer,reported better mood , presenting with brighter affect, no changes in sleep or appetite pt denied side effects of medications, denied suicidal or homicidal ideations Medical Problems: pt has multiple inpatient hospitalizations DSM 5 Symptoms Update: schizoaffective disorder Medication Change: No Medical Record Reviewed: Yes Mental Status Examination - Cognitive Function Orientation: Person Attention: WNL Concentration: WNL Association: WNL Fund of Knowledge: Poor Decription of patient's judgement and insights: partial insight and poor judgment - Mood Mood: Anxious - Affect Affect: Constricted - Speech Speech: Appropriate - Formal Thought Process Formal Thought Process: Circumstantial Psychotic Thoughts and Behaviors: pt denied ay curent perceptual disturbances, non elicited - Suicidal Ideation Suicidal Ideation: No - Homicidal Ideation Homicidal Ideation: No Goal/Treatment Plan - Goal/Treatment Plan Need for Continued Stay: Severe depression anxiety, Discharge may exacerbated symptoms Progress Toward Problem(s) and Goals/Treatment Plan: continue with prozac 40mg daily and risperidone 2mg qhs. cogentin 0.5 mg qhs group and supportive therapy pt at current time requires linkage to case management to avoid rehospitalization will attempt linking to [facility] services Estimated Date of D/C: 12/01/17
[2017-11-27 16:29] VITALS: RESP 18
--- NOTE | 2017-11-28 13:10 | PCM.PYCHPN ---
Psychiatric Progress Note - Psychiatric Progress Note Patient seen today, length of contact: pt evaluated discussed with team chart reviewed Patient Chief Complaint: I am feeling better Problems Identified/Issues Discussed: pt seen on unit appears calmer,reported better mood , presenting with brighter affect,attending groups, compliant with treatment no changes in sleep or appetite pt denied side effects of medications, denied suicidal or homicidal ideations Medical Problems: pt has multiple inpatient hospitalizations DSM 5 Symptoms Update: schizoaffective disorder Medication Change: No Medical Record Reviewed: Yes Mental Status Examination - Cognitive Function Orientation: Person Attention: WNL Concentration: WNL Association: WNL Fund of Knowledge: Poor Decription of patient's judgement and insights: partial insight and poor judgment - Mood Mood: Anxious - Affect Affect: Constricted - Speech Speech: Appropriate - Formal Thought Process Formal Thought Process: Circumstantial Psychotic Thoughts and Behaviors: pt denied ay current perceptual disturbances, non elicited - Suicidal Ideation Suicidal Ideation: No - Homicidal Ideation Homicidal Ideation: No Goal/Treatment Plan - Goal/Treatment Plan Need for Continued Stay: Severe depression anxiety, Discharge may exacerbated symptoms Progress Toward Problem(s) and Goals/Treatment Plan: continue with prozac 40mg daily and risperidone 2mg qhs. cogentin 0.5 mg qhs group and supportive therapy pt at current time requires linkage to case management to avoid rehospitalization will attempt linking to [facility] services Estimated Date of D/C: 12/01/17
[2017-11-28 16:56] VITALS: BP 120/67; PULSE 72; TEMP 98.2
--- NOTE | 2017-11-29 09:51 | PCM.PYCHDC ---
Mental Status Examination - Mental Status Examination Orientation: Person, Place, Situation Memory: Intact Mood: Neutral Affect: Broad Speech: Appropriate Attention: WNL Concentration: WNL Association: WNL Fund of Knowledge: WN Formal Thought Process: Circumstantial Description of patient's judgement and insight: partial insight and poor judgment Psychotic Thoughts and Behaviors: pt denied ay current perceptual disturbances, non elicited Suicidal Ideation: No Current Homicidal Ideation?: No Discharge Summary - Discharge Note Reason for Hospitalization: pt with previous diagnosis of schizoaffective disorder, became depressed and having suicidal ideation after having altercation with his mother, pt also reported because of insurance problems he was not able to take his medications for three days pt stated feeling depressed and worried about his mother, denied any current suicidal or homicidal ideations Consultations:: List each consultation separately and include: 1. Reason for request. 2. Findings. 3. Follow-up Summary of Hospital Course include:: 1. Description of specific treatment plan utilized for patients during their course of treatmen. 2. Summarize the time- course for resolution of acute symptoms and/or regressed behaviors. 3. Describe issues identified and worked on during hospitalization. 4. Describe medication utilized. 5. Describe medical problems identified and treated. 6. Reassessment of suicide risk Summary of Hospital Course: PT ON ADMISSION WAS RESTARTED ON HIS MEDICATION HE HAS NOT BEEN ABLE TO TAKE FOR THREE DAYS PRIOR TO ADMISSION BECAUSE OF INSURANCE PROBLEMS PT WAS STARTED ON RISPERIDONE 2MG, PROZAC 40MG AND COGENTIN 0.5MG, NO REPORTED SIDE EFFECTS ON DISCHARGE PT MENTAL STATUS WAS STABLE, PT DENIED ANY CURRENT SUICIDAL OR HOMICIDAL IDEATIONS, DENIED PERCEPTUAL DISTURBANCES PT WAS COOPERATIVE PARTICIPATED IN TREATMENT AND ATTENDED GROUPS PT WAS CONCERNED ABOUT HIS CURRENT LIVING SUITUATION REPORTED HIS MOTHER LOOSING HER BENIFITS, [employer] WORK[employer] CONTACTED [facility] WORKER OF THE MOTHER TO LOOK INTO THE CURRENT SOCIAL STRESSORS FOR THE FAMILY - Diagnosis (1) Schizoaffective disorder Current Visit: Yes Status: Acute - Final Diagnosis (DSM 5) Condition upon Discharge: STABLE DSM 5: SCHIZOAFFECTIVE DISORDER DEPRESSED Disposition: HOME/ ROUTINE Follow-up Treatment Plan: continue with prozac 40mg daily and risperidone 2mg qhs. cogentin 0.5 mg qhs group and supportive therapy pt at current time requires linkage to case management to avoid rehospitalization will attempt linking to [facility] services Prescriptions/Medication Reconciliation: Benztropine [Cogentin] 0.5 mg PO HS 30 Days #30 tab FLUoxetine [Prozac] 40 mg PO DAILY 30 Days #60 cap risperiDONE [RisperDAL Tab] 2 mg PO HS 30 Days #30 tab - Antipsychotic Medications Pt discharged on 2 or more routine antipsychotic medications: No
== END 2017-11-29 12:31 | disposition home or self-care (01) | DRG 430 ==
LOC: H.ER 16:46 → H.ERHOLD 18:13 → H.PSYCH 22:49
PROVIDERS: ADMIT Psychiatry & Neurology Psychiatry; ATTEND Psychiatry & Neurology Psychiatry
PROC: GZHZZZZ Group Psychotherapy (ICD-10-PCS; principal; 2017-11-24)
PROC: GZ51ZZZ Individual Psychotherapy, Behavioral (ICD-10-PCS; 2017-11-24)
DX: F25.9 Schizoaffective disorder, unspecified (principal); M41.9 Scoliosis, unspecified; R45.851 Suicidal ideations; E78.00 Pure hypercholesterolemia, unspecified; E78.5 Hyperlipidemia, unspecified; Z79.899 Other long term (current) drug therapy

== ENCOUNTER 2018-07-17 16:48 | Emergency (ER) | payer OTHER ==
[2018-07-17 16:48] VITALS: BMI 24.3
[2018-07-17 16:57] VITALS: PULSE 72; TEMP 99.4
[2018-07-17 18:20] LABS: ALB/GLOB RATIO 1.4 (1.0-2.1); ALBUMIN 4.1 g/dL (3.5-5.0); ALT/SGPT 57 U/L (21-72); AST/SGOT 64 U/L (17-59); BLOOD UREA NITROGEN 15 mg/dl (9-20); CALCIUM 9.2 mg/dL (8.4-10.2); GFR NON-AFRICAN AMERICAN > 60
[2018-07-17 18:21] LABS: SQUAMOUS EPITHIAL < 1 /hpf (0-5); URINE BACTERIA RARE (<OCC); URINE BILIRUBIN NEGATIVE (NEGATIVE); URINE BLOOD NEGATIVE (NEGATIVE); URINE CLARITY CLOUDY (Clear); URINE COLOR YELLOW (YELLOW); URINE GLUCOSE (UA) NEG (Normal); URINE LEUKOCYTE ESTERASE NEG Leu/uL (Negative); URINE PROTEIN 30 mg/dL (NEGATIVE); URINE UROBILINOGEN 0.2-1.0 mg/dL (0.2-1.0)
[2018-07-17 18:45] LABS: HEMOGLOBIN 13.5 g/dL (12.0-18.0); MEAN CELL VOLUME 91.8 fl (80.0-94.0); MEAN CORPUSCULAR HEMOGLOBIN 29.9 pg (27.0-31.0); MEAN CORPUSCULAR HGB CONC 32.6 g/dL (33.0-37.0); RBC 4.51 Mil/uL (4.40-5.90); RED CELL DISTRIBUTION WIDTH 13.3 % (11.5-14.5); WHITE BLOOD COUNT 10.1 K/uL (4.8-10.8)
--- NOTE | 2018-07-17 18:50 | ED PDOC ---
HPI: Psych/Substance Abuse Time Seen by Provider: 07/17/18 16:59 Chief Complaint (Nursing): Psychiatric Evaluation Chief Complaint (Provider): Pyschiatric Evaluation History Per: Patient, EMS History/Exam Limitations: no limitations Onset/Duration Of Symptoms: Days (x3) Current Symptoms Are (Timing): Still Present Additional Complaint(s): 33 year old male presents to the ED via EMS for psychiatric evaluation. Patient reports he has had suicidal ideations for x3 days. Pt states he would overdose on his anti-psychotic medications. PMD: none Past Medical History Reviewed: Historical Data, Nursing Documentation, Vital Signs Vital Signs: Last Vital Signs Temp 99.4 F 07/17/18 16:54 Pulse 72 07/17/18 16:54 Resp 16 07/17/18 16:54 BP 136/81 07/17/18 16:54 Pulse Ox 96 07/17/18 16:54 - Medical History PMH: Anxiety, Back Problems (scoliosis), Depression, Hypercholesterolemia, Hyperlipidemia, Schizophrenia Denies: Diabetes, Hepatitis, HIV, HTN, Chronic Kidney Disease, Seizures, Sexually Transmitted Disease Other PMH: No medications for cholesterol - Surgical History Surgical History: No Surg Hx - Family History Family History: States: Unknown Family Hx - Immunization History Hx Tetanus Toxoid Vaccination: No Hx Influenza Vaccination: No Hx Pneumococcal Vaccination: No - Home Medications Home Medications: Ambulatory Orders Medication Instructions Recorded Benztropine [Cogentin] 0.5 mg PO HS 30 Days #30 tab 11/29/17 FLUoxetine [Prozac] 40 mg PO DAILY 30 Days #60 cap 11/29/17 risperiDONE [RisperDAL Tab] 2 mg PO HS 30 Days #30 tab 11/29/17 - Allergies Allergies/Adverse Reactions: Allergies Allergy/AdvReac Type Severity Reaction Status Date / Time No Known Allergies Allergy Verified 07/17/18 16:54 Review of Systems ROS Statement: Except As Marked, All Systems Reviewed And Found Negative Constitutional: Negative for: Fever, Chills Psych: Positive for: Suicidal ideation. Negative for: Withdrawal Physical Exam - Reviewed Nursing Documentation Reviewed: Yes Vital Signs Reviewed: Yes - Physical Exam Appears: Positive for: Non-toxic, No Acute Distress Head Exam: Positive for: ATRAUMATIC, NORMOCEPHALIC Skin: Positive for: Normal Color, Warm, Dry Eye Exam: Positive for: Normal appearance ENT: Positive for: Normal ENT Inspection Neck: Positive for: Normal, Painless ROM Cardiovascular/Chest: Positive for: Regular Rate, Rhythm. Negative for: Murmur Respiratory: Positive for: Normal Breath Sounds. Negative for: Wheezing, Respiratory Distress Extremity: Positive for: Normal ROM Neurologic/Psych: Positive for: Alert, Oriented. Negative for: Motor/Sensory Deficits - Laboratory Results Result Diagrams: 07/17/18 17:46 07/17/18 17:46 - ECG O2 Sat by Pulse Oximetry: 96 (RA) Pulse Ox Interpretation: Normal Medical Decision Making Medical Decision Making: Initial Impression: Psychiatric evaluation Initial Plan: --Urine drug screen --Crisis evaluation Scribe Attestation: Documented by Miguel Angel Freitas acting as a scribe for Gayatri NÚÑEZ. Provider Scribe Attestation: All medical record entries made by the Scribe were at my direction and personally dictated by me. I have reviewed the chart and agree that the record accurately reflects my personal performance of the history, physical exam, medical decision making, and the department course for this patient. I have also personally directed, reviewed, and agree with the discharge instructions and disposition. Disposition - Clinical Impression Clinical Impression: Depression - Patient ED Disposition Is Patient to be Admitted: No Counseled Patient/Family Regarding: Diagnosis, Need For Followup - Disposition Referrals: [facility] [Outside] Disposition: Routine/Home Disposition Time: 19:58 Condition: GOOD Instructions: Depression Forms: [employer] (Maltese)
[2018-07-17 18:58] LABS: BARBITURATES, UR NEGATIVE (NEGATIVE); BENZODIAZEPINES, UR NEGATIVE (NEGATIVE); OPIATES, UR NEGATIVE (NEGATIVE); PHENCYCLIDINE, UR NEGATIVE (NEGATIVE)
[2018-07-17 21:24] VITALS: BP 132/79; RESP 17; O2SAT 98
== END 2018-07-17 21:23 | disposition home or self-care (01) ==
LOC: H.ER 16:48
DX: F32.9 Major depressive disorder, single episode, unspecified (principal); R45.851 Suicidal ideations; M41.9 Scoliosis, unspecified; F41.9 Anxiety disorder, unspecified; Z86.59 Personal history of other mental and behavioral disorders; E78.00 Pure hypercholesterolemia, unspecified; Z00.8 Encounter for other general examination

== ENCOUNTER 2018-08-04 15:03 | Emergency (ER) | payer OTHER ==
[2018-08-04 15:03] VITALS: BMI 24.3
[2018-08-04 15:38] VITALS: BP 132/74; PULSE 88; RESP 20; TEMP 98.7; O2SAT 100
--- NOTE | 2018-08-04 15:50 | ED PDOC ---
HPI: General Adult Time Seen by Provider: 08/04/18 15:35 Chief Complaint (Nursing): GI Problem Chief Complaint (Provider): Diarrhea, STD panel History Per: Patient History/Exam Limitations: no limitations Onset/Duration Of Symptoms: Days (x1 week) Current Symptoms Are (Timing): Gone Now Additional Complaint(s): 33 year old male presents to the ED expressing concerns for a possible STD. Patient reports having unprotected sex recently, but denies his partner or himself ever having a hx of any. For the past week, he also states having multiple episodes of diarrhea, but is has since resolved and he feels better. Denies dysuria. He offers no other complaints at this time. Of note, patient is taking risperdal daily and states compliance. PMD: none provided Past Medical History Reviewed: Historical Data, Nursing Documentation, Vital Signs Vital Signs: Last Vital Signs Temp 98.7 F 08/04/18 15:36 Pulse 88 08/04/18 15:36 Resp 20 08/04/18 15:36 BP 132/74 08/04/18 15:36 Pulse Ox 100 08/04/18 15:54 - Medical History PMH: Anxiety, Back Problems (scoliosis), Depression, Hypercholesterolemia, Hyperlipidemia, Schizophrenia Denies: Diabetes, Hepatitis, HIV, HTN, Chronic Kidney Disease, Seizures, Sexually Transmitted Disease - Surgical History Surgical History: No Surg Hx - Family History Family History: States: Unknown Family Hx - Immunization History Hx Tetanus Toxoid Vaccination: No Hx Influenza Vaccination: No Hx Pneumococcal Vaccination: No - Home Medications Home Medications: Ambulatory Orders Medication Instructions Recorded Benztropine [Cogentin] 0.5 mg PO HS 30 Days #30 tab 11/29/17 FLUoxetine [Prozac] 40 mg PO DAILY 30 Days #60 cap 11/29/17 risperiDONE [RisperDAL Tab] 2 mg PO HS 30 Days #30 tab 11/29/17 - Allergies Allergies/Adverse Reactions: Allergies Allergy/AdvReac Type Severity Reaction Status Date / Time No Known Allergies Allergy Verified 08/04/18 15:35 Review of Systems ROS Statement: Except As Marked, All Systems Reviewed And Found Negative Gastrointestinal: Positive for: Diarrhea (but resolved now) Genitourinary Male: Negative for: Dysuria Physical Exam - Reviewed Nursing Documentation Reviewed: Yes Vital Signs Reviewed: Yes - Physical Exam Appears: Positive for: No Acute Distress Head Exam: Positive for: ATRAUMATIC, NORMAL INSPECTION, NORMOCEPHALIC Skin: Positive for: Normal Color. Negative for: Rash Eye Exam: Positive for: Normal appearance Neck: Positive for: Normal, Painless ROM, Supple Cardiovascular/Chest: Positive for: Regular Rate, Rhythm Respiratory: Positive for: Normal Breath Sounds. Negative for: Respiratory Distress Gastrointestinal/Abdominal: Positive for: Normal Exam, Soft. Negative for: Tenderness Male Genital Exam: Positive for: other (deferred) Extremity: Positive for: Normal ROM Neurologic/Psych: Positive for: Alert, Oriented (x3) - Laboratory Results Urine dip results: Positive for: Ketones (trace). Negative for: Leukocyte Esterase, Blood, Nitrate, Glucose, Bilirubin - ECG O2 Sat by Pulse Oximetry: 100 (RA) Pulse Ox Interpretation: Normal Medical Decision Making Medical Decision Making: Time: 1541 Initial Impression: STD panel Initial Plan: --U-dip --Chlamydia / GC RNA, TMA Scribe Attestation: Documented by Starla Jeffrey, acting as a scribe for Elliot Abdi PA-C. Provider Scribe Attestation: All medical record entries made by the Scribe were at my direction and personally dictated by me. I have reviewed the chart and agree that the record accurately reflects my personal performance of the history, physical exam, medical decision making, and the department course for this patient. I have also personally directed, reviewed, and agree with the discharge instructions and disposition. Disposition - Clinical Impression Clinical Impression: Possible exposure to STD - Patient ED Disposition Is Patient to be Admitted: No - Disposition Referrals: [facility] [Outside] Disposition: Routine/Home Disposition Time: 16:05 Condition: FAIR Instructions: Condom Options
== END 2018-08-04 16:42 | disposition home or self-care (01) ==
LOC: H.ER 15:03
DX: Z20.2 Contact with and (suspected) exposure to infections with a predominantly sexual mode of transmission (principal); Z86.59 Personal history of other mental and behavioral disorders

== ENCOUNTER 2018-09-21 20:00 | Inpatient (IN) | payer OTHER ==
[2018-09-21 20:00] VITALS: BMI 24.3
--- NOTE | 2018-09-21 21:01 | ED PDOC ---
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 He reports feeling depressed because he is alone. Patient states currently only feeling tired. He denies headache, vision changes, numbness, nausea, vomiting, abdominal pain, or other symptoms. PCP: Galina Colon Past Medical History Reviewed: Historical Data, Nursing Documentation, Vital Signs Vital Signs: Last Vital Signs Temp 98.3 F 09/21/18 20:09 Pulse 94 H 09/21/18 20:09 Resp 16 09/21/18 20:09 BP 123/77 09/21/18 20:09 Pulse Ox 96 09/21/18 20:09 - Medical History PMH: Anxiety, Back Problems (scoliosis), Depression, Hypercholesterolemia, Hyperlipidemia, Schizophrenia Denies: Diabetes, Hepatitis, HIV, HTN, Chronic Kidney Disease, Seizures, Sexually Transmitted Disease - Family History Family History: States: Unknown Family Hx - Immunization History Hx Tetanus Toxoid Vaccination: No Hx Influenza Vaccination: No Hx Pneumococcal Vaccination: No - Home Medications Home Medications: Ambulatory Orders Medication Instructions Recorded Benztropine [Cogentin] 0.5 mg PO HS 30 Days #30 tab 11/29/17 FLUoxetine [Prozac] 40 mg PO DAILY 30 Days #60 cap 11/29/17 risperiDONE [RisperDAL Tab] 2 mg PO HS 30 Days #30 tab 11/29/17 - Allergies Allergies/Adverse Reactions: Allergies Allergy/AdvReac Type Severity Reaction Status Date / Time No Known Allergies Allergy Verified 08/04/18 15:35 Review of Systems ROS Statement: Except As Marked, All Systems Reviewed And Found Negative Constitutional: Positive for: Other (tired) Eyes: Negative for: Vision Change Gastrointestinal: Negative for: Nausea, Vomiting, Abdominal Pain Neurological: Negative for: Numbness, Headache Physical Exam - Reviewed Nursing Documentation Reviewed: Yes Vital Signs Reviewed: Yes - Physical Exam Appears: Positive for: No Acute Distress Head Exam: Positive for: ATRAUMATIC, NORMOCEPHALIC Skin: Positive for: Normal Color Eye Exam: Positive for: EOMI, Normal appearance, PERRL Neck: Positive for: Normal Extremity: Positive for: Normal ROM (x4) Neurologic/Psych: Positive for: Alert, Oriented (x3). Negative for: Motor/Sensory Deficits - Laboratory Results Result Diagrams: 09/21/18 21:01 09/21/18 21:01 - ECG O2 Sat by Pulse Oximetry: 96 (RA) Pulse Ox Interpretation: Normal Medical Decision Making Medical Decision Making: Time: 2031 Assessment: 32 year old male with schizoaffective disorder and a suicidal gesture. Patient is current alert and orientated. Poison control has been contacted and will monitor patient for respiratory depression. Patient will appreciate crisis evaluation. Initial Plan: --labs --EKG --UA 0030 --Poison control closed case, 2nd EKG unchanged --Patient accepted by Asher Bragg to Psych under Dr. Rucker with diagnosis of Unspecified Depressive Disorder --Patient medically stable for psychiatric admission ----- Scribe Attestation: Documented by Stefano Fuentes, acting as a scribe for Danny Chadwick MD. Provider Scribe Attestation: All medical record entries made by the Scribe were at my direction and personally dictated by me. I have reviewed the chart and agree that the record accurately reflects my personal performance of the history, physical exam, medical decision making, and the department course for this patient. I have also personally directed, reviewed, and agree with the discharge instructions and di sposition. Disposition - Clinical Impression Clinical Impression: Depression - Disposition Disposition Time: 23:00 Condition: FAIR Forms: [employer] (Danish)
[2018-09-21 21:05] LABS: BASO % 0.6 % (0.0-2.0); EOS # 0.1 K/uL (0.0-0.7); EOS % 1.5 % (0.0-4.0); HEMOGLOBIN 13.7 g/dL (12.0-18.0); LYMPH # 1.2 K/uL (1.0-4.3); MEAN CELL VOLUME 90.8 fl (80.0-94.0); MEAN CORPUSCULAR HEMOGLOBIN 29.6 pg (27.0-31.0); MEAN CORPUSCULAR HGB CONC 32.6 g/dL (33.0-37.0); MEAN PLATELET VOLUME 9.4 fl (7.2-11.7); MONO # 0.4 K/uL (0.0-0.8); MONO % 5.6 % (0.0-10.0); NEUT # 5.8 K/uL (1.8-7.0); NEUT % 76.3 % (50.0-75.0); RBC 4.61 Mil/uL (4.40-5.90); RED CELL DISTRIBUTION WIDTH 12.6 % (11.5-14.5); WHITE BLOOD COUNT 7.7 K/uL (4.8-10.8)
[2018-09-21 21:12] LABS: URINE BILIRUBIN NEGATIVE (NEGATIVE); URINE BLOOD NEGATIVE (NEGATIVE); URINE CLARITY SLIGHTY-CLOUDY (Clear); URINE COLOR YELLOW (YELLOW); URINE GLUCOSE (UA) NEG (Normal); URINE LEUKOCYTE ESTERASE NEG Leu/uL (Negative); URINE PROTEIN NEGATIVE (NEGATIVE); URINE UROBILINOGEN 0.2-1.0 mg/dL (0.2-1.0)
[2018-09-21 21:16] LABS: ACETAMINOPHEN < 10.0 ug/ml (10.0-30.0); BLOOD UREA NITROGEN 18 mg/dl (9-20); CALCIUM 9.7 mg/dL (8.4-10.2); GFR NON-AFRICAN AMERICAN > 60; SALICYLATE < 1.0 mg/dl
[2018-09-21 21:22] LABS: BARBITURATES, UR NEGATIVE (NEGATIVE); BENZODIAZEPINES, UR NEGATIVE (NEGATIVE); OPIATES, UR NEGATIVE (NEGATIVE); PHENCYCLIDINE, UR NEGATIVE (NEGATIVE)
[2018-09-22] MEDS ORDERED: Magnesium Hydroxide Susp 30 ml UD PO PRN (01:06)
[2018-09-22] MEDS ORDERED: Alum-Mag Hydrox-Simethicone Susp (30 mL) PO PRN (01:06)
[2018-09-22] MEDS ORDERED: DiphenhydrAMINE 50 mg/ml Inj IM PRN (01:06)
[2018-09-22 01:22] VITALS: O2SAT 96
--- NOTE | 2018-09-22 01:42 | PCM.BM ---
<Annemarie Arteaga P - Last Filed: 09/22/18 01:41> Treatment Plan Problems - Problems identified on initial assessmt Hopelessness/helplessness Date Initiated: 09/22/18 Time Initiated: 01:41 Assessment reference: NA Status: Active Altered Sleep Patterns Date Initiated: 09/22/18 Time Initiated: 01:41 Assessment reference: NA Status: Active Treatment assets and liabiliti Patient Assests: cooperative, ADL independent, physically healthy, negotiates basic needs, cognitively intact, good interpersonal skills Patient Liabilities: live alone, financial problems, poor support system - Milieu Protocol Maintain good personal hygiene: daily Encourage regular showers, daily Remind patient to perform daily oral care, daily Assist patient to perform ADL's Conduct patient checks and document Observation sheet: Q15 minutes Maintain personal safety: every shift Educate patient to report safety concerns to staff, every shift Monitor environment for contraband/sharps Medication safety: Monitor for expected outcome, potential side effects: every shift, Assess barriers to learning: every shift, Assess readiness for medication education: every shift <Tess Rogel - Last Filed: 09/25/18 17:12> Treatment assets and liabiliti Patient Assests: adapts well, cooperative, insightful, motivated, resourceful (Pt. reports difficulties with finances/household responsabilities since mother was commited), good support system Patient Liabilities: live alone (Pt identifies mother as primary support. Pts mother is currently hospitalized with [facility] financial problems (Pt. has lost his medicaid benefits/food stamps and is currently unable to depend on his mother to contribute to finances.) Family Contact Family involvement: Family/SO is involved Family contact: Other (Pts only family/social support (mother) is currently hospitalized.) - Outside Agency Agency 1 Care involvment: Following patient during stay, Information-sharing, Other Agency contact name: [facility] Agency contact number: [phone] - Goals for Treatment Patient goals for treatment: Patient to continue stabilization on 3NP through medication management and group/supportive therapy to address sxs of depression, eliminate suicidal ideations and improve organization of thoughts. Patient to be encouraged to attend groups regularly to promote self-awareness, self- determination, and improve insight, compliance, coping skills and self-esteem. P atient to be provided with referral for appropriate level of aftercare to reduce risk of future hospitalizations and ensure safety in the community. Discharge/Continuing Care - Education Needs Education Needs: Patient Medication, Patient Diagnosis/Disease Process, Patient Coping Skills, Patient Community resources, Patient Aftercare Safety Plan - Discharge Discharge Criteria: Tolerates medication w/o severe side effects, Free of Suicidal thoughts, Normal sleep pattern, Ability to care for self, Other Discharge to:: Home, Other ([facility](OPS) ; [facility] (if agreeable)) - Treatment Team Participation Patient/Family/SO Statement: 09/25/18 17:19 Pt. attended tx team on 09/24 to discuss precursors to hospitalization, progress on 3NP and tx goals. Pt. continued to report sxs of anxiety and depression but to a lesser degree than upon admission. Pt. reported improvement in sxs of depression since admission as exhibited by improved sleep and elimination of suicidal ideations. Pt. was made aware of staff availability and was able to contract for safety. Pt. presented as hypomanic.Pt. requesting assistance filing for SSI benefits. Information for social work lecturer to be provided. Recommended medication management discussed. Pt. agreeable to recommendations. Discussed with Family/SO: No Was Patient/Family/SO present at Treatment Team Meeting: Yes <Rach Webster - Last Filed: 09/26/18 08:22> - Diagnosis (1) Depression Status: Acute Interventions: psychotherapy, pharmacotherapy 09/26/18 08:21
--- NOTE | 2018-09-22 09:13 | CARD ---
APPROVED REPORT Date of service: 09/22/2018 EKG Measurement Heart [id number] <Conclusion> Sinus bradycardia Otherwise normal ECG
--- NOTE | 2018-09-22 09:14 | CARD ---
APPROVED REPORT Date of service: 09/21/2018 EKG Measurement Heart [id number] <Conclusion> Normal sinus rhythm Normal ECG
[2018-09-22 10:54] LABS: T4 6.96 ug/dl (5.5-11.0)
--- NOTE | 2018-09-22 14:29 | PCM.PSYCH ---
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 has been seeing dr padilla, has insurance with copays which affected his ability to meet bills. reports feeling overwhelmed about bills, concerns about becoming homeless. has completed associate's degree. Patient's Reaction to Hospitalization: admitted voluntarily History of Present Illness and Precipitating Events: pt increased feelngs of being overwhelmed not being able to pay bills mother in intermediate psychiatric care. pt hx of being treated by dr padilla [facility] , issues with follow up and medications 2nd to copays and mother' s intermediate admission. pt felt overwhelmed not knowing what to do presented to er and was aadmitted voluntarily s Current Medications: Active Medications Generic Name Dose Route Start Last Admin Trade Name Freq PRN Reason Stop Dose Admin Acetaminophen 650 mg 09/22/18 01:06 Tylenol 325mg Tab PO Q4 PRN pain level 4-7 Al Hydrox/Mg Hydrox/Simethicone 30 ml 09/22/18 01:06 Maalox Plus 30 Ml PO Q4 PRN Dyspepsia Diphenhydramine HCl 50 mg 09/22/18 01:06 Benadryl IM Q6 PRN Extrapyramidal S/S Unable PO Diphenhydramine HCl 50 mg 09/22/18 01:06 Benadryl PO Q6 PRN Extrapyramidal Symptoms Diphenhydramine HCl 50 mg 09/22/18 01:11 Benadryl PO HS PRN Sleep Haloperidol 5 mg 09/22/18 01:06 Haldol PO Q4 PRN Agitation Haloperidol Lactate 5 mg 09/22/18 01:06 Haldol IM Q4 PRN Agitation, Unable to Take PO Lorazepam 1 mg 09/22/18 01:06 Ativan IM Q8H PRN Anxiety/Agitation,Unable PO Lorazepam 1 mg 09/22/18 01:06 Ativan PO Q8H PRN Anxiety/Agitation Magnesium Hydroxide 30 ml 09/22/18 01:06 Milk Of Magnesia PO HS PRN Constipation Past Psychiatric History - Past Psychiatric History Prior Professional Help: inpt 11/2017 [facility], [facility]: [facility] Duration: varied History of Abuse: denies mother with chronic mental illness History of ETOH/Drug Use: denies History of Family Illness: mother with chronic mental illness currently in [facility] Pertinent Medical Hx (Current Medical&Sleep Prob, Allergies): Allergies Allergy/AdvReac Type Severity Reaction Status Date / Time No Known Allergies Allergy Verified 08/04/18 15:35 Benztropine [Cogentin] 0.5 mg PO HS 30 Days #30 tab 11/29/17 FLUoxetine [Prozac] 40 mg PO DAILY 30 Days #60 cap 11/29/17 risperiDONE [RisperDAL Tab] 2 mg PO HS 30 Days #30 tab 11/29/17 Review of Systems - Psychiatric Psychiatric: Anhedonia, Depression, Suicidal Ideation Additional comments: feeling overwhelmed Mental Status Examination - Personal Presentation Personal Presentation: Looks stated age - Affect Affect: Constricted - Motor Activity Motor Activity: Psychomotor Retardation - Reliability in Providing Information Reliability in Providing Information: Fair - Speech Speech: Organized - Mood Mood: Depressed - Formal Thought Process Formal Thought Process: No Impairment - Obsessions/Compulsions Obsessions: No Compulsions: No - Cognitive Functions Orientation: Person, Place, Situation, Time Sensorium: Alert Attention/Concentration: Attentive Judgement: Imparied, as evidence by: Other - Risk Risk: Suicidal Additional comments: no plan - Limitations Limitations: Living alone (mother currently inpt at [facility] ) DSM 5 DX - DSM 5 DSM 5 Diagnosis: Schizoaffective disorder bipolar type most recent episode depressed Major depression moderate to severe without psychosis family circumstances - Recommended/Plan of Treatment Treatment Recommendations and Plan of Treatment: inpt admission per attending vital signs and clinical observation per per protocol and per clinical status hospitalist consult prns per unit protocol discharge planning in progress Projected ELOS: 5-7 days Prognosis: guarded Discharge Plan and Discharge Criteria: guarded - Smoking Cessation Smoking Cessation Initiated: No Reason for not providing: pt defers
--- NOTE | 2018-09-22 17:37 | CP.PCM.CON ---
History of Present Illness - History of Present Illness History of Present Illness: 33 yo male admitted to psyche unit because of worsening depression and suicidal ideation. Review of Systems - Review of Systems All systems: reviewed and no additional remarkable complaints except (aside from those mentioned above, 12 point system review were negative by me) Past Patient History - Infectious Disease Hx of Infectious Diseases: None - Past Social History Smoking Status: Never Smoked Chewing Tobacco Use: No Cigar Use: No Alcohol: None Drugs: Denies Home Situation {Lives}: Alone - CARDIAC Hx Hypercholesterolemia: Yes Hx Hypertension: No - PULMONARY Hx Respiratory Disorders: No Hx Tuberculosis: No - NEUROLOGICAL Hx Seizures: No - HEENT Hx HEENT Problems: No - RENAL Hx Chronic Kidney Disease: No - ENDOCRINE/METABOLIC Hx Endocrine Disorders: No - HEMATOLOGICAL/ONCOLOGICAL Hx Human Immunodeficiency Virus (HIV): No - INTEGUMENTARY Hx Dermatological Problems: No - MUSCULOSKELETAL/RHEUMATOLOGICAL Hx Musculoskeletal Disorders: Yes - GASTROINTESTINAL Hx Gastrointestinal Disorders: No - GENITOURINARY/GYNECOLOGICAL Hx Sexually Transmitted Disorders: No - PSYCHIATRIC Hx Substance Use: No - SURGICAL HISTORY Hx Surgeries: No - ANESTHESIA Hx Anesthesia: Yes Meds Allergies/Adverse Reactions: Allergies Allergy/AdvReac Type Severity Reaction Status Date / Time No Known Allergies Allergy Verified 08/04/18 15:35 - Medications Medications: Current Medications Acetaminophen (Tylenol 325mg Tab) 650 mg PO Q4 PRN PRN Reason: pain level 4-7 Al Hydrox/Mg Hydrox/Simethicone (Maalox Plus 30 Ml) 30 ml PO Q4 PRN PRN Reason: Dyspepsia Benztropine Mesylate (Cogentin) 0.5 mg PO HS ELMA Diphenhydramine HCl (Benadryl) 50 mg IM Q6 PRN PRN Reason: Extrapyramidal S/S Unable PO Diphenhydramine HCl (Benadryl) 50 mg PO Q6 PRN PRN Reason: Extrapyramidal Symptoms Diphenhydramine HCl (Benadryl) 50 mg PO HS PRN PRN Reason: Sleep Fluoxetine HCl (Prozac) 40 mg PO DAILY ELMA Haloperidol (Haldol) 5 mg PO Q4 PRN PRN Reason: Agitation Haloperidol Lactate (Haldol) 5 mg IM Q4 PRN PRN Reason: Agitation, Unable to Take PO Lorazepam (Ativan) 1 mg IM Q8H PRN PRN Reason: Anxiety/Agitation,Unable PO Lorazepam (Ativan) 1 mg PO Q8H PRN PRN Reason: Anxiety/Agitation Magnesium Hydroxide (Milk Of Magnesia) 30 ml PO HS PRN PRN Reason: Constipation Risperidone (Risperdal Tab) 2 mg PO HS ELMA Physical Exam - Constitutional Appears: No Acute Distress - Head Exam Head Exam: ATRAUMATIC - Eye Exam Eye Exam: absent: Scleral icterus - ENT Exam ENT Exam: Mucous Membranes Moist - Neck Exam Neck exam: Negative for: Meningismus - Respiratory Exam Respiratory Exam: absent: Prolonged Expiratory Phase, Rales, Rhonchi, Wheezes, Respiratory Distress - Cardiovascular Exam Cardiovascular Exam: REGULAR RHYTHM, +S1, +S2 - GI/Abdominal Exam GI & Abdominal Exam: Soft. absent: Tenderness - Rectal Exam Rectal Exam: Deferred - Back Exam Back exam: NORMAL INSPECTION - Neurological Exam Neurological exam: Alert, Oriented x3 - Psychiatric Exam Psychiatric exam: Normal Affect - Skin Skin Exam: Dry, Intact Results - Vital Signs Recent Vital Signs: Last Vital Signs Temp 97.9 F 09/22/18 00:44 Pulse 64 09/22/18 01:26 Resp 17 09/22/18 01:26 BP 117/59 L 09/22/18 00:44 Pulse Ox 96 09/22/18 01:22 - Labs Result Diagrams: 09/21/18 21:01 09/21/18 21:01 Labs: Laboratory Results - last 24 hr 09/21/18 09/21/18 09/21/18 20:43 21:01 21:01 WBC RBC Hgb Hct MCV MCH MCHC RDW Plt Count MPV Neut % (Auto) Lymph % (Auto) [place]range % (Auto) Eos % (Auto) Baso % (Auto) Neut # (Auto) Lymph # (Auto) [place] # (Auto) Eos # (Auto) Baso # (Auto) Sodium 138 Potassium 3.8 Chloride 102 Carbon Dioxide 26 Anion Gap 14 BUN 18 Creatinine 0.8 Est GFR ( Amer) > 60 Est GFR (Non-Af Amer) > 60 POC Glucose (mg/dL) 92 Random Glucose 98 Calcium 9.7 Magnesium 1.9 Triglycerides Cholesterol LDL Cholesterol Direct HDL Cholesterol Thyroxine (T4) TSH 3rd Generation Urine Color Urine Clarity Urine pH Ur Specific Willard Urine Protein Urine Glucose (UA) Urine Ketones Urine Blood Urine Nitrate Urine Bilirubin Urine Urobilinogen Ur Leukocyte Esterase Urine RBC (Auto) Urine Microscopic WBC Salicylates < 1.0 Urine Opiates Screen Urine Methadone Screen Acetaminophen < 10.0 L Ur Barbiturates Screen Ur Phencyclidine Scrn Ur Amphetamines Screen U Benzodiazepines Scrn U Oth Cocaine Metabols U Cannabinoids Screen Alcohol, Quantitative < 10 RPR 09/21/18 09/21/18 09/21/18 21:01 21:01 21:01 WBC 7.7 RBC 4.61 Hgb 13.7 Hct 41.9 MCV 90.8 MCH 29.6 MCHC 32.6 L RDW 12.6 Plt Count 226 MPV 9.4 Neut % (Auto) 76.3 H Lymph % (Auto) 16.0 L Lag[place] % (Auto) 5.6 Eos % (Auto) 1.5 Baso % (Auto) 0.6 Neut # (Auto) 5.8 Lymph # (Auto) 1.2 Lagrange # (Auto) 0.4 Eos # (Auto) 0.1 Baso # (Auto) 0.0 Sodium Potassium Chloride Carbon Dioxide Anion Gap BUN Creatinine Est GFR ( Amer) Est GFR (Non-Af Amer) POC Glucose (mg/dL) Random Glucose Calcium Magnesium Triglycerides Cholesterol LDL Cholesterol Direct HDL Cholesterol Thyroxine (T4) TSH 3rd Generation Urine Color Yellow Urine Clarity Slighty-cloudy Urine pH 6.0 Ur Specific Willard 1.021 Urine Protein Negative Urine Glucose (UA) Neg Urine Ketones Negative Urine Blood Negative Urine Nitrate Negative Urine Bilirubin Negative Urine Urobilinogen 0.2-1.0 Ur Leukocyte Esterase Neg Urine RBC (Auto) 3 Urine Microscopic WBC 1 Salicylates Urine Opiates Screen Negative Urine Methadone Screen Negative Acetaminophen Ur Barbiturates Screen Negative Ur Phencyclidine Scrn Negative Ur Amphetamines Screen Negative U Benzodiazepines Scrn Negative U Oth Cocaine Metabols Negative U Cannabinoids Screen Negative Alcohol, Quantitative RPR 09/22/18 09/22/18 09:30 09:30 WBC RBC Hgb Hct MCV MCH MCHC RDW Plt Count MPV Neut % (Auto) Lymph % (Auto) Lagrange % (Auto) Eos % (Auto) Baso % (Auto) Neut # (Auto) Lymph # (Auto) Lagrange # (Auto) Eos # (Auto) Baso # (Auto) Sodium Potassium Chloride Carbon Dioxide Anion Gap BUN Creatinine Est GFR ( Amer) Est GFR (Non-Af Amer) POC Glucose (mg/dL) Random Glucose Calcium Magnesium Triglycerides 52 Cholesterol 163 LDL Cholesterol Direct 101 HDL Cholesterol 50 Thyroxine (T4) 6.96 TSH 3rd Generation 1.85 Urine Color Urine Clarity Urine pH Ur Specific Willard Urine Protein Urine Glucose (UA) Urine Ketones Urine Blood Urine Nitrate Urine Bilirubin Urine Urobilinogen Ur Leukocyte Esterase Urine RBC (Auto) Urine Microscopic WBC Salicylates Urine Opiates Screen Urine Methadone Screen Acetaminophen Ur Barbiturates Screen Ur Phencyclidine Scrn Ur Amphetamines Screen U Benzodiazepines Scrn U Oth Cocaine Metabols U Cannabinoids Screen Alcohol, Quantitative RPR Nonreactive Assessment & Plan (1) Depression Status: Acute Comment: psyche is managing (2) Suicidal ideation Status: Acute Comment: psyche is managing
--- NOTE | 2018-09-23 10:21 | PCM.PYCHPN ---
Psychiatric Progress Note - Psychiatric Progress Note Patient seen today, length of contact: pt evaluated discussed with team chart reviewed Patient Chief Complaint: I am having a hard time without my mother Problems Identified/Issues Discussed: pt seen in his room, unkempt , disheveled, depressed mood , depressed and constricted affect, speech soft and underproductive, pt with concrete thought process, denied command hallucinations, denied active suicidal ideation ion the unit, no reported side effects of medications DSM 5 Symptoms Update: schizoaffective disorder depressed Medication Change: No Medical Record Reviewed: Yes Mental Status Examination - Cognitive Function Orientation: Person, Place, Situation, Time Attention: WNL Concentration: Poor Association: WNL Fund of Knowledge: Poor Decription of patient's judgement and insights: partial insight , poor judgment - Mood Mood: Depressed - Affect Affect: Constricted, Depressed - Speech Speech: Soft - Formal Thought Process Formal Thought Process: Circumstantial - Suicidal Ideation Suicidal Ideation: No - Homicidal Ideation Homicidal Ideation: No Goal/Treatment Plan - Goal/Treatment Plan Need for Continued Stay: Severe depression anxiety, Discharge may exacerbated symptoms Progress Toward Problem(s) and Goals/Treatment Plan: continue with risperidone and zoloft CBT group and supportive therapy disposition planning
--- NOTE | 2018-09-24 11:03 | PCM.PYCHPN ---
Psychiatric Progress Note - Psychiatric Progress Note Patient seen today, length of contact: pt evaluated discussed with team chart reviewed Patient Chief Complaint: I am afraid I would loose my job Problems Identified/Issues Discussed: pt evaluated with treatment team, presenting with anxious mood , constricted affect, concrete thought process, pt depressed in the context of his current financial situation , and the possibility of being evicted, pt also worried about loosing his, job, reported feeling better with prozac and risperidone, denied any current side effects denied command hallucinations, denied active suicidal ideation DSM 5 Symptoms Update: schizoaffaective disorder depressed Medication Change: No Medical Record Reviewed: Yes Mental Status Examination - Cognitive Function Orientation: Person, Place, Situation, Time Attention: WNL Concentration: Poor Association: WNL Fund of Knowledge: Poor Decription of patient's judgement and insights: partial insight , poor judgment - Mood Mood: Depressed - Affect Affect: Constricted, Depressed - Speech Speech: Soft - Formal Thought Process Formal Thought Process: Circumstantial - Suicidal Ideation Suicidal Ideation: No - Homicidal Ideation Homicidal Ideation: No Goal/Treatment Plan - Goal/Treatment Plan Need for Continued Stay: Severe depression anxiety, Discharge may exacerbated symptoms Progress Toward Problem(s) and Goals/Treatment Plan: continue with risperidone and zoloft CBT group and supportive therapy disposition planning
--- NOTE | 2018-09-25 15:26 | PCM.PYCHPN ---
Psychiatric Progress Note - Psychiatric Progress Note Patient seen today, length of contact: pt evaluated discussed with team chart reviewed Patient Chief Complaint: I feel better, I want to go to work Problems Identified/Issues Discussed: pt evaluated , reported feeling less depressed, more interactive with staff and other patients ,no reported side effects of medications, attending groups, denied command hallucinations, denied active suicidal ideation DSM 5 Symptoms Update: schizoaffective disorder depressed Medication Change: No Medical Record Reviewed: Yes Mental Status Examination - Cognitive Function Orientation: Person, Place, Situation, Time Attention: WNL Concentration: Poor Association: WNL Fund of Knowledge: Poor Decription of patient's judgement and insights: partial insight , poor judgment - Mood Mood: Depressed - Affect Affect: Constricted, Depressed - Speech Speech: Soft - Formal Thought Process Formal Thought Process: Circumstantial - Suicidal Ideation Suicidal Ideation: No - Homicidal Ideation Homicidal Ideation: No Goal/Treatment Plan - Goal/Treatment Plan Need for Continued Stay: Severe depression anxiety, Discharge may exacerbated symptoms Progress Toward Problem(s) and Goals/Treatment Plan: continue with risperidone and zoloft CBT group and supportive therapy disposition planning
[2018-09-26 09:03] VITALS: BP 106/61; PULSE 54; RESP 16; TEMP 96.9
--- NOTE | 2018-09-26 15:52 | PCM.PYCHDC ---
Mental Status Examination - Mental Status Examination Orientation: Person, Place, Situation Memory: Intact Mood: Neutral Affect: Broad Speech: Appropriate Attention: WNL Concentration: WNL Association: WNL Fund of Knowledge: WNL Formal Thought Process: No Impairment Description of patient's judgement and insight: partial insight ,fair judgment Psychotic Thoughts and Behaviors: pt on discharge denied perceptual disturbances, non elicited Suicidal Ideation: No Current Homicidal Ideation?: No Discharge Summary - Discharge Note Reason for Hospitalization: admitted via er, last 11/2017, decreased support system, 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 has been seeing dr padilla, has insurance with copays which affected his ability to meet bills. reports feeling overwhelmed about bills, concerns about becoming homeless. has completed associate's degree. Consultations:: List each consultation separately and include: 1. Reason for request. 2. Findings. 3. Follow-up Summary of Hospital Course include:: 1. Description of specific treatment plan utilized for patients during their course of treatmen. 2. Summarize the time- course for resolution of acute symptoms and/or regressed behaviors. 3. Describe issues identified and worked on during hospitalization. 4. Describe medication utilized. 5. Describe medical problems identified and treated. 6. Reassessment of suicide risk Summary of Hospital Course: pt on admission was started on zoloft and risperidone CBT , group and supportive therapy provided pt was compliant with treatment, no reported side effects , on discharge, mental status was stable, pt denied any current suicidal or homicidal ideation denied perceptual disturbances pt referred by manager social media to [facility] and follow up arranged at [facility] - Diagnosis (1) Depression Status: Acute - Final Diagnosis (DSM 5) Condition upon Discharge: FAIR DSM 5: schizoaffective disorder depressed Disposition: HOME/ ROUTINE Follow-up Treatment Plan: continue with risperidone and zoloft CBT group and supportive therapy disposition planning Prescriptions/Medication Reconciliation: FLUoxetine [Prozac] 40 mg PO DAILY 30 Days #60 cap risperiDONE [RisperDAL Tab] 2 mg PO HS 30 Days #30 tab - Antipsychotic Medications Pt discharged on 2 or more routine antipsychotic medications: No
== END 2018-09-26 14:43 | disposition home or self-care (01) | DRG 750 ==
LOC: H.ER 20:00 → H.PSYCH 23:37
PROVIDERS: ADMIT Psychiatry & Neurology Psychiatry; ATTEND Psychiatry & Neurology Psychiatry
PROC: GZHZZZZ Group Psychotherapy (ICD-10-PCS; principal; 2018-09-21)
PROC: GZ58ZZZ Individual Psychotherapy, Cognitive-Behavioral (ICD-10-PCS; 2018-09-21)
PROC: GZ56ZZZ Individual Psychotherapy, Supportive (ICD-10-PCS; 2018-09-21)
DX: F25.1 Schizoaffective disorder, depressive type (principal); R45.851 Suicidal ideations; M41.9 Scoliosis, unspecified; E78.00 Pure hypercholesterolemia, unspecified; E78.5 Hyperlipidemia, unspecified

== ENCOUNTER 2018-10-23 19:54 | Emergency (ER) | payer OTHER ==
[2018-10-23 19:54] VITALS: BMI 24.3
[2018-10-23 20:07] VITALS: BP 114/87; PULSE 79; RESP 16; TEMP 98.4; O2SAT 97
--- NOTE | 2018-10-23 20:28 | ED PDOC ---
HPI: Psych/Substance Abuse Time Seen by Provider: 10/23/18 20:07 Chief Complaint (Nursing): Psychiatric Evaluation Chief Complaint (Provider): Psychiatric Evaluation History Per: Patient History/Exam Limitations: no limitations Onset/Duration Of Symptoms: Days (x2 weeks) Current Symptoms Are (Timing): Still Present Additional Complaint(s): Patient is a 33 year old male who presents to the emergency department for psychiatric evaluation. Patient states he has been feeling depressed recently because he feels alone as his mom is currently hospitalized. Patient reports he has been compliant with his medications, Prozac and Risperdal, with his last dose being last night. He states he has suicidal ideation but no plan. Other psychiatric symptoms: (-) hallucinations, (+) suicidal ideation, (-) homicidal ideation. Otherwise:(-) fever (-) substance abuse PMD: no provider Past Medical History Reviewed: Historical Data, Nursing Documentation, Vital Signs Vital Signs: Last Vital Signs Temp 98.4 F 10/23/18 19:58 Pulse 79 10/23/18 19:58 Resp 16 10/23/18 19:58 BP 114/87 10/23/18 19:58 Pulse Ox 97 10/23/18 19:58 - Medical History PMH: Anxiety, Back Problems (scoliosis), Depression, Hypercholesterolemia, Hyperlipidemia, Schizophrenia Other PMH: scoliosis - Surgical History Surgical History: No Surg Hx - Family History Family History: States: Unknown Family Hx - Social History Current smoker - smoking cessation education provided: No Ex-Smoker (has not smoked in the last 12 months): No Alcohol: None Drugs: Denies - Home Medications Home Medications: Ambulatory Orders Medication Instructions Recorded RX: Benztropine [Cogentin] 0.5 mg PO HS 30 Days #30 tab 11/29/17 RX: FLUoxetine [Prozac] 40 mg PO DAILY 30 Days #60 cap 09/26/18 RX: risperiDONE [RisperDAL Tab] 2 mg PO HS 30 Days #30 tab 09/26/18 - Allergies Allergies/Adverse Reactions: Allergies Allergy/AdvReac Type Severity Reaction Status Date / Time No Known Allergies Allergy Verified 08/04/18 15:35 Review of Systems ROS Statement: Except As Marked, All Systems Reviewed And Found Negative Psych: Positive for: Depression, Suicidal ideation (no homicidal ideation; plan; hallucinations) Physical Exam - Reviewed Nursing Documentation Reviewed: Yes Vital Signs Reviewed: Yes - Physical Exam Comments: GENERAL APPEARANCE: Patient is awake, alert, oriented x 3, in no acute distress. SKIN: Warm, dry; (-) cyanosis ENMT: Mucous membranes moist. Airway patent: (-) stridor. NECK: Supple HEART AND CARDIOVASCULAR: (-) irregularity CHEST AND RESPIRATORY: (-) rales, (-) rhonchi, (-) wheezes; breath sounds equal. Respirations nonlabored. ABDOMEN: Soft, (-) distention, (-) tenderness, (-) guarding. NEURO AND PSYCH: Mental status as above. (-) facial asymmetry. Gait: steady. Speech: clear. - ECG O2 Sat by Pulse Oximetry: 97 (RA) Pulse Ox Interpretation: Normal Medical Decision Making Medical Decision Making: Time: 20:15 Impression: psychiatric evaluation plan: --crisis evaluation --1:1 observation 2199 Crisis at bedside. 2229 Per crisis evaluation, patient to be discharged with the diagnosis of depression per Dr Rucker. On exam, patient remains AAOx3, in no acute distress. Vitals stable. Lab/Diagnostic results d/w the patient in great detail. Diagnosis of depression d/w the patient. Based on history, exam and diagnostic results, plan will be for outpatient follow up as arranged by crisis. Patient instructed to follow-up with pmd / referral provided / the clinic in 1- 2 days without fail. Return to the emergency room at any time for any new or worsening symptoms. Patient states he fully agrees with and understands discharge instructions. States that he agrees with the plan and disposition. Verbalized and repeated discharge instructions and plan. I have given the patient opportunity to ask any additional questions. Scribe Attestation: Documented by Shelton Sanchez, acting as a scribe for Tara Martin Provider Scribe Attestation: All medical record entries made by the Scribe were at my direction and personally dictated by me. I have reviewed the chart and agree that the record accurately reflects my personal performance of the history, physical exam, medical decision making, and the department course for this patient. I have also personally directed, reviewed, and agree with the discharge instructions and disposition. Disposition - Clinical Impression Clinical Impression: Depression - Patient ED Disposition Is Patient to be Admitted: No Counseled Patient/Family Regarding: Studies Performed, Diagnosis, Need For Followup - Disposition Referrals: [facility] [Outside] Disposition: Routine/Home Disposition Time: 22:30 Condition: FAIR Additional Instructions: The emergency medical care you received today was directed at your acute symptoms. If you were prescribed any medication, please fill it and take as directed. It may take several days for your symptoms to resolve. Return to the Emergency Department if your symptoms worsen, do not improve, or if you have any other problems. Please contact your doctor in 2 days for re-evaluation and follow up / or call one of the physicians/clinics you have been referred to that are listed on the Patient Visit Information form that is included in your discharge packet. Bring any paperwork you were given at discharge with you along with any medications you are taking to your follow up visit. Our treatment cannot replace ongoing medical care by a primary care provider (PCP) outside of the emergency department. Instructions: Depression, Suicide Prevention, Tips for How to Help Your Mood Forms: [facility] (Iranian) Print Language: HEBREW - POA Present On Arrival: None
== END 2018-10-23 22:47 | disposition home or self-care (01) ==
LOC: H.ER 19:54
DX: F32.9 Major depressive disorder, single episode, unspecified (principal)

== ENCOUNTER 2019-02-04 00:45 | Emergency (ER) | payer MEDICAID, OTHER ==
[2019-02-04 00:45] VITALS: BMI 24.3
[2019-02-04] MEDS ORDERED: Sodium Chloride 0.9% 1,000 ML IV STA (01:08)
[2019-02-04 01:29] LABS: BASO % 0.4 % (0.0-2.0); EOS % 0.2 % (0.0-4.0); HEMOGLOBIN 13.6 g/dL (12.0-18.0); MEAN CELL VOLUME 90.7 fl (80.0-94.0); MEAN CORPUSCULAR HEMOGLOBIN 29.6 pg (27.0-31.0); MEAN CORPUSCULAR HGB CONC 32.7 g/dL (33.0-37.0); MEAN PLATELET VOLUME 9.5 fl (7.2-11.7); MONO # 0.5 K/uL (0.0-0.8); MONO % 3.9 % (0.0-10.0); NEUT # 10.7 K/uL (1.8-7.0); NEUT % 87.5 % (50.0-75.0); PLATELET COUNT 222 K/uL (130-400); RBC 4.58 Mil/uL (4.40-5.90); WHITE BLOOD COUNT 12.3 K/uL (4.8-10.8)
--- NOTE | 2019-02-04 01:29 | ED PDOC ---
HPI: Abdomen Time Seen by Provider: 02/04/19 01:00 Chief Complaint (Nursing): Abdominal Pain Chief Complaint (Provider): Abdominal Pain History Per: Patient History/Exam Limitations: no limitations Onset/Duration Of Symptoms: Hrs Additional Complaint(s): 33 y/o male with history of schizoaffective disorder presents with acute right sided abdominal pain, onset about an hour prior to arrival. Patient states he has nausea and vomited twice, non-bloody non-bilious. Patient deneis fever, diarrhea, shortness of breath, cough, chest pain. Past Medical History Reviewed: Historical Data, Nursing Documentation, Vital Signs Vital Signs: Last Vital Signs Temp 98.8 F 02/04/19 00:59 Pulse 56 L 02/04/19 00:59 Resp 18 02/04/19 00:59 BP 135/82 02/04/19 00:59 Pulse Ox 98 02/04/19 00:59 - Medical History PMH: Anxiety, Back Problems (scoliosis), Depression, Hypercholesterolemia, Hyperlipidemia, Schizophrenia Denies: Diabetes, Hepatitis, HIV, HTN, Chronic Kidney Disease, Seizures, Sexually Transmitted Disease - Family History Family History: States: Unknown Family Hx - Social History Current smoker - smoking cessation education provided: No Alcohol: None Drugs: Denies - Immunization History Hx Tetanus Toxoid Vaccination: No Hx Influenza Vaccination: No Hx Pneumococcal Vaccination: No - Home Medications Home Medications: Ambulatory Orders Medication Instructions Recorded Benztropine [Cogentin] 0.5 mg PO HS 30 Days #30 tab 11/29/17 FLUoxetine [Prozac] 40 mg PO DAILY 30 Days #60 cap 09/26/18 risperiDONE [RisperDAL Tab] 2 mg PO HS 30 Days #30 tab 09/26/18 Tamsulosin [Flomax] 0.4 mg PO DAILY #10 cap 02/04/19 traMADol [Ultram] 50 mg PO Q6 #12 tab 02/04/19 - Allergies Allergies/Adverse Reactions: Allergies Allergy/AdvReac Type Severity Reaction Status Date / Time No Known Allergies Allergy Verified 02/04/19 00:57 Review of Systems ROS Statement: Except As Marked, All Systems Reviewed And Found Negative Constitutional: Negative for: Fever Cardiovascular: Negative for: Chest Pain Respiratory: Negative for: Cough Gastrointestinal: Positive for: Nausea, Vomiting, Abdominal Pain. Negative for: Diarrhea Physical Exam - Reviewed Nursing Documentation Reviewed: Yes Vital Signs Reviewed: Yes - Physical Exam Appears: Positive for: Well, Non-toxic, No Acute Distress Head Exam: Positive for: ATRAUMATIC, NORMAL INSPECTION, NORMOCEPHALIC Skin: Positive for: Normal Color, Warm, DRY Eye Exam: Positive for: EOMI, Normal appearance, PERRL ENT: Positive for: Normal ENT Inspection Neck: Positive for: Normal, Painless ROM Cardiovascular/Chest: Positive for: Regular Rate, Rhythm. Negative for: Murmur Respiratory: Positive for: Normal Breath Sounds. Negative for: Respiratory Distress Gastrointestinal/Abdominal: Positive for: Tenderness (mild right sided) Back: Positive for: Normal Inspection Extremity: Positive for: Normal ROM. Negative for: Pedal Edema, Deformity Neurological/Psych: Positive for: Awake, Alert, Normal Tone. Negative for: Jose r/Sensory Deficits - Laboratory Results Result Diagrams: 02/04/19 01:26 02/04/19 01:26 - ECG O2 Sat by Pulse Oximetry: 98 (RA) Pulse Ox Interpretation: Normal Medical Decision Making Medical Decision Making: Time: 01:06 Impression: 33 y/o with right sided abdominal pain Initial Plan: * Labs * Will order CT based on labs * Toradol * IV Fluids * Zofran 05:50 CT Abd Pelvis FINDINGS: Bilateral basilar atelectatic pulmonary changes. Normal unenhanced liver. Normal gallbladder and extrahepatic biliary system. Normal unenhanced spleen. Normal pancreas. Normal bilateral adrenal glands. Normal size of the right kidney. There is no right renal mass. There are no right renal calculi. 4 mm obstructing stone in the most distal aspect of the right ureter just proximal to the right ureterovesical junction. Normal size of the left kidney. There is no left renal mass. 3 mm left renal nonobstructing stone. There is no left hydronephrosis. Normal visualized left ureter. Normal visualized stomach. Normal small intestine. Uncomplicated diverticulosis with moderate amount of fecal residue in the colon. The appendix is visualized and appears normal. There is no demonstrated peritoneal fluid. Normal abdominal aorta. Normal inferior vena cava. Normal retroperitoneum. Mild diffuse thickening of the urinary bladder. There is no pelvic mass lesion or lymphadenopathy. There is no pelvic fluid. Normal abdominal wall. Normal osseous structures. IMPRESSION: Obstructing stone of the most distal aspect of the right ureter. 05:56 Patient reports marked improvement of symptoms and is stable for discharge. Diagnosis is ureteral calculus. Patient will be discharged home with Rx for Tramadol Provider had a lengthy discussion with patient regarding the risks of dependency addiction with Tramadol medication and advised patient to use medication sparingly should pain not be controlled by Ibuprofen. Patient verbalized understanding of risk of use. Scribe Attestation: Documented by Elie Rodriges, acting as a scribe Andra Cm MD Provider Scribe Attestation: All medical record entries made by the Scribe were at my direction and personally dictated by me. I have reviewed the chart and agree that the record accurately reflects my personal performance of the history, physical exam, medical decision making, and the department course for this patient. I have also personally directed, reviewed, and agree with the discharge instructions and disposition Disposition - Clinical Impression Clinical Impression: Ureteral calculus - Patient ED Disposition Is Patient to be Admitted: No - Disposition Referrals: Hemal Woodward MD [Medical Doctor] - Disposition: Routine/Home Disposition Time: 05:56 Condition: STABLE Additional Instructions: SAVI GROVER, thank you for letting us take care of you today. Your provider was Lucas Cm MD and you were treated for ABD PAIN. The emergency medical care you received today was directed at your acute symptoms. If you were prescribed any medication, please fill it and take as directed. It may take several days for your symptoms to resolve. Return to the Emergency Department if your symptoms worsen, do not improve, or if you have any other problems. Please contact your doctor or call one of the physicians/clinics you have been referred to that are listed on the Patient Visit Information form that is included in your discharge packet. Bring any paperwork you were given at discharge with you along with any medications you are taking to your follow up visit. Our treatment cannot replace ongoing medical care by a primary care provider outside of the emergency department. Thank you for allowing the [facility]. team to be part of your care today. If you had an X-Ray or CT scan: A Radiologist will review the ED reading if any change in treatment is needed we will contact you. If you had a blood, urine, or wound culture: It will take several days for the results, if any change in treatment is needed we will contact you. If you had an STI test: It will take 48 hours for the results. Please call after 1 week if you have not heard back. Prescriptions: Tamsulosin [Flomax] 0.4 mg PO DAILY #10 cap traMADol [Ultram] 50 mg PO Q6 #12 tab Instructions: Kidney Stones in Adults, How to Strain Your Urine Forms: [employer] [facility] ([place])
[2019-02-04 01:38] LABS: ALB/GLOB RATIO 1.3 (1.0-2.1); ALBUMIN 4.5 g/dL (3.5-5.0); ALT/SGPT 56 U/L (21-72); AST/SGOT 73 U/L (17-59); BLOOD UREA NITROGEN 18 mg/dl (9-20); CALCIUM 9.8 mg/dL (8.4-10.2); GFR NON-AFRICAN AMERICAN > 60; LIPASE 169 U/L (23-300)
[2019-02-04 02:31] LABS: BANDS 3 % (0-2); LYMPHOCYTE 9 % (20-50); MONOCYTE 4 % (0-10); NEUTROPHIL 84 % (42-75); PLATELET ESTIMATE NORMAL (NORMAL); TOTAL CELLS COUNTED 100
[2019-02-04 04:24] LABS: SQUAMOUS EPITHIAL < 1 /hpf (0-5); URINE BILIRUBIN NEGATIVE (NEGATIVE); URINE BLOOD MODERATE (NEGATIVE); URINE CLARITY SLIGHTY-CLOUDY (Clear); URINE COLOR YELLOW (YELLOW); URINE GLUCOSE (UA) NEG (NEGATIVE); URINE LEUKOCYTE ESTERASE NEG Leu/uL (Negative); URINE PROTEIN 100 mg/dL (NEGATIVE)
[2019-02-04 06:31] VITALS: BP 105/54; PULSE 50; RESP 14; TEMP 98.1
[2019-02-04 06:56] VITALS: O2SAT 98
--- NOTE | 2019-02-04 11:15 | CT ---
Date of service: 02/04/2019 PROCEDURE: CT Abdomen and Pelvis without intravenous contrast HISTORY: renal colic COMPARISON: None. TECHNIQUE: Without contrast.. Contrast dose: 0 Radiation dose: Total exam DLP = 644.36 mGy-cm. This CT exam was performed using one or more of the following dose reduction techniques: Automated exposure control, adjustment of the mA and/or kV according to patient size, and/or use of iterative reconstruction technique. FINDINGS: LOWER THORAX: Bilateral lower lobe subsegmental atelectasis. LIVER: Normal size, contour and attenuation. No mass. No biliary dilatation. GALLBLADDER AND BILE DUCTS: Unremarkable. PANCREAS: Unremarkable. No gross lesion or ductal dilatation. SPLEEN: Unremarkable. ADRENALS: Unremarkable. No mass. KIDNEYS AND URETERS: Mild right hydronephrosis and hydroureter. Obstructing 6 mm distal right ureteral calculus proximal to the ureterovesical junction. No right renal calculus. There is a 2 mm nonobstructing left lower pole renal calculus. There is no left hydronephrosis or hydroureter. There is no renal mass. VASCULATURE: Unremarkable. No aortic aneurysm. No aortic atherosclerotic calcification or mural plaque present. BOWEL: Unremarkable. No obstruction. No gross mural thickening. APPENDIX: Unremarkable. Normal appendix. PERITONEUM: Unremarkable. No free fluid. No free air. LYMPH NODES: Unremarkable. No enlarged lymph nodes. BLADDER: Mild mural thickening most likely due to suboptimal distention. REPRODUCTIVE: Normal prostate BONES: No acute fracture. OTHER FINDINGS: None. IMPRESSION: Obstructing 6 mm distal right ureteral calculus with mild right hydroureteronephrosis. No additional abnormality. The preliminary findings for this examination were reported by [facility] at 5:50 a.m. on 02/04/2019. There is concurrence of this report with the preliminary findings.
== END 2019-02-04 06:31 | disposition home or self-care (01) ==
LOC: H.ER 00:45
DX: N13.2 Hydronephrosis with renal and ureteral calculous obstruction (principal); Z86.59 Personal history of other mental and behavioral disorders; M41.9 Scoliosis, unspecified
CPT/HCPCS: 74176; 80053; 81003; 83690; 85025; 96360; 99284; J1885; J2405; J7030

== ENCOUNTER 2019-02-28 10:50 | Inpatient (IN) | payer MEDICAID ==
[2019-02-28 11:16] VITALS: BMI 25.9
--- NOTE | 2019-02-28 12:32 | ED PDOC ---
HPI: Psych/Substance Abuse Time Seen by Provider: 02/28/19 11:15 Chief Complaint (Nursing): Psychiatric Evaluation Chief Complaint (Provider): Psychiatric Evaluation History Per: Patient History/Exam Limitations: no limitations Onset/Duration Of Symptoms: Hrs Additional Complaint(s): 34 y/o male presents to the ED complaining of depression and suicidal. Patient states he felt suicidal today and wanted to jump in front of a car. He reports he has financial issues and hasnt eaten in 3 days. He states he has a history of depression and schizophrenia and he ran out of his medications. Denies any other complaints. PMD: none provided Past Medical History Reviewed: Historical Data, Nursing Documentation, Vital Signs Vital Signs: Last Vital Signs Temp 98.3 F 02/28/19 11:14 Pulse 51 L 02/28/19 11:14 Resp 18 02/28/19 11:14 BP 125/77 02/28/19 11:14 Pulse Ox 95 02/28/19 11:14 - Medical History PMH: Anxiety, Back Problems (scoliosis), Depression, Hypercholesterolemia, Hyperlipidemia, Schizophrenia Denies: Diabetes, Hepatitis, HIV, HTN, Chronic Kidney Disease, Seizures, Sexually Transmitted Disease - Surgical History Surgical History: No Surg Hx - Family History Family History: States: Unknown Family Hx - Social History Current smoker - smoking cessation education provided: No Alcohol: None Drugs: Denies - Immunization History Hx Tetanus Toxoid Vaccination: No Hx Influenza Vaccination: No Hx Pneumococcal Vaccination: No - Home Medications Home Medications: Ambulatory Orders Medication Instructions Recorded Fluoxetine HCl [Prozac] 40 mg PO QPM 02/28/19 Risperidone [Risperdal] 3 mg PO HS 02/28/19 - Allergies Allergies/Adverse Reactions: Allergies Allergy/AdvReac Type Severity Reaction Status Date / Time No Known Allergies Allergy Verified 02/04/19 00:57 Review of Systems ROS Statement: Except As Marked, All Systems Reviewed And Found Negative Psych: Positive for: Depression, Suicidal ideation Physical Exam - Reviewed Nursing Documentation Reviewed: Yes Vital Signs Reviewed: Yes - Physical Exam Appears: Positive for: Well, Non-toxic, No Acute Distress Head Exam: Positive for: ATRAUMATIC, NORMAL INSPECTION, NORMOCEPHALIC Skin: Positive for: Normal Color, Warm, Dry Eye Exam: Positive for: EOMI, Normal appearance, PERRL ENT: Positive for: Normal ENT Inspection Neck: Positive for: Normal, Painless ROM, Supple Cardiovascular/Chest: Positive for: Regular Rate, Rhythm. Negative for: Murmur Respiratory: Positive for: Normal Breath Sounds. Negative for: Wheezing Gastrointestinal/Abdominal: Positive for: Normal Exam, Soft. Negative for: Tenderness Back: Positive for: Normal Inspection. Negative for: L CVA Tenderness, R CVA T enderness Extremity: Positive for: Normal ROM Neurological/Psych: Positive for: Awake, Alert, Normal Tone, Oriented (x3). Negative for: Motor/Sensory Deficits - Laboratory Results Result Diagrams: 02/28/19 12:48 02/28/19 12:48 - ECG O2 Sat by Pulse Oximetry: 95 Medical Decision Making Medical Decision Making: Time:1200 Initial Impression: Depression Initial Plan: -CBC -Urinalysis -1:1 observation -Acetaminophen -Alcohol serum -BMP -Drug screen -Salicylate 1445: Patient is medically cleared for psychiatric eval. per crisis team pt to be admitted to Dr. pantoja under schizoaffective 1502: EKG normal sinus rhythm. ---- Scribe Attestation: Documented by Paulette Maya, acting as a scribe for Roxana Caldwell Provider Scribe Attestation: All medical record entries made by the Scribe were at my direction and personall y dictated by me. I have reviewed the chart and agree that the record accurately reflects my personal performance of the history, physical exam, medical decision making, and the department course for this patient. I have also personally directed, reviewed, and agree with the discharge instructions and disposition. Disposition - Clinical Impression Clinical Impression: Schizoaffective disorder - Patient ED Disposition Is Patient to be Admitted: Yes - Disposition Disposition Time: 14:35 Condition: STABLE
[2019-02-28 12:58] LABS: BASO # 0.1 K/uL (0.0-0.2); EOS # 0.3 K/uL (0.0-0.7); EOS % 4.6 % (0.0-4.0); HEMOGLOBIN 13.8 g/dL (12.0-18.0); LYMPH # 1.3 K/uL (1.0-4.3); LYMPH % 22.3 % (20.0-40.0); MEAN CELL VOLUME 89.8 fl (80.0-94.0); MEAN CORPUSCULAR HEMOGLOBIN 29.9 pg (27.0-31.0); MEAN CORPUSCULAR HGB CONC 33.3 g/dL (33.0-37.0); MEAN PLATELET VOLUME 9.1 fl (7.2-11.7); MONO # 0.5 K/uL (0.0-0.8); MONO % 7.7 % (0.0-10.0); NEUT # 3.8 K/uL (1.8-7.0); NEUT % 64.4 % (50.0-75.0); NRBC % 0.1 % (0.0-0.0); RBC 4.62 Mil/uL (4.40-5.90); RED CELL DISTRIBUTION WIDTH 12.5 % (11.5-14.5); WHITE BLOOD COUNT 5.9 K/uL (4.8-10.8)
[2019-02-28 13:10] LABS: SQUAMOUS EPITHIAL < 1 /hpf (0-5); URINE BACTERIA RARE (<OCC); URINE BILIRUBIN NEGATIVE (NEGATIVE); URINE BLOOD NEGATIVE (NEGATIVE); URINE CLARITY SLIGHTY-CLOUDY (Clear); URINE COLOR YELLOW (YELLOW); URINE GLUCOSE (UA) NEG (NEGATIVE); URINE LEUKOCYTE ESTERASE NEG Leu/uL (Negative); URINE PROTEIN NEGATIVE (NEGATIVE); URINE UROBILINOGEN 0.2-1.0 mg/dL (0.2-1.0)
[2019-02-28 13:30] LABS: ACETAMINOPHEN < 10.0 ug/ml (10.0-30.0); SALICYLATE < 1.0 mg/dl
[2019-02-28 13:44] LABS: BLOOD UREA NITROGEN 11 mg/dl (9-20); CALCIUM 9.3 mg/dL (8.4-10.2); GFR NON-AFRICAN AMERICAN > 60
[2019-02-28] MEDS ORDERED: Magnesium Hydroxide Susp 30 ml UD PO PRN (17:02)
[2019-02-28] MEDS ORDERED: Alum-Mag Hydrox-Simethicone Susp (30 mL) PO PRN (17:02)
[2019-02-28] MEDS ORDERED: DiphenhydrAMINE 50 mg/ml Inj IM PRN (17:02)
[2019-02-28 17:06] LABS: BARBITURATES, UR NEGATIVE (NEGATIVE); BENZODIAZEPINES, UR NEGATIVE (NEGATIVE); OPIATES, UR NEGATIVE (NEGATIVE); PHENCYCLIDINE, UR NEGATIVE (NEGATIVE)
[2019-02-28 18:40] VITALS: O2SAT 95
--- NOTE | 2019-02-28 18:40 | PCM.BM ---
<Josie Bryson - Last Filed: 02/28/19 18:40> Treatment Plan Problems - Problems identified on initial assessmt Hopelessness/Helplessness Date Initiated: 02/28/19 Time Initiated: 18:39 Assessment reference: NA Status: Active Feelings Of Worthlessness Date Initiated: 02/28/19 Time Initiated: 18:39 Assessment reference: NA Status: Active Social Isolation Date Initiated: 02/28/19 Time Initiated: 18:39 Assessment reference: NA Status: Active Treatment assets and liabiliti Patient Assests: adapts well, cooperative, insightful, motivated, resourceful, ADL independent, physically healthy Patient Liabilities: live alone (lives alone and is 3 months behind on rent), financial problems (3 months behind on rent, patient's job also cut his hours), poor support system - Milieu Protocol Maintain good personal hygiene: daily Encourage regular showers, daily Remind patient to perform daily oral care, daily Assist patient to perform ADL's, every shift Encourage regular showers, every shift Remind patient to perform daily oral care, every shift Assist patient to perform ADL's Maintain personal safety: daily Educate patient to report safety concerns to staff, daily Monitor environment for contraband/sharps Medication safety: Monitor for expected outcome, potential side effects: daily, Assess barriers to learning: daily, Assess readiness for medication education: daily <Tess Rogel - Last Filed: 03/01/19 15:57> Treatment assets and liabiliti Patient Assests: adapts well, cooperative, insightful, motivated, resourceful, self-reliant, ADL independent, physically healthy, negotiates basic needs, good past tx response, cognitively intact Patient Liabilities: live alone ( Pt. reports residing alone. Pt. previously residing with mother who is currently hospitalized with [facility]. ), financial problems (Pt. reports being used to splitting the bills with his mother but currently being 3 months behind on rent due to mothers hosp italization. Pt. reports having hours recently decreased to 15hr/week. Pt. denies having SSI benefits. ), other (Pt. brought to ED by ICMS worker after expressing SI in context of being unable to buy food and owing 3 months of rent. Pt. reported recent weight loss secondary to insufficient funds to buy food. ) Family Contact Family involvement: Famliy/SO not involved Family contact: Patient declines to allow family contact at present, Other (Pt's only support is pts mother who is currently in a long-term psychiatric facility) Family contact comment: Johnnie [phone] - Outside Agency Agency 1 Agency contact number: Addendum entered and electronically signed by Tess Rogel MSW 03/01/19 15:39: Shipping Clerk Packing placed 2nd call at 320pm. Shipping Clerk Packing left brief message requesting return phone call. Original Note: Shipping Clerk Packing placed call to [facility] meter supervisor (Johnnie [phone]) at 930am to notify appropriate staff of pts hospitalization and asked to be connected to pts impregnation operator [place]. Shipping Clerk Packing left detailed message on identified voicemail and is awaiting response. Discharge/Continuing Care - Education Needs Education Needs: Patient Medication, Patient Diagnosis/Disease Process, Patient Coping Skills, Patient Community resources, Patient Aftercare Safety Plan - Discharge Discharge Criteria: Tolerates medication w/o severe side effects, Free of Suicidal thoughts, Normal sleep pattern, Ability to care for self Discharge to:: Home, Other ([facility]) - Treatment Team Participation Patient/Family/SO Statement: 03/01/19 15:59 Pt. attended tx team this morning to discuss precursors to hospitalization and tx goals. Pt. presented as depressed as exhibited by poor energy/motivation, feelings of hopelessness/loneliness, and suicidal ideations. Pt. denied plan or intent and was able to contract for safety on 3[employer]. Pt. expressed sadness and frustration towards possibility of homelessness and lack of supports since mother was hospitalized. Emotional support and validation provided. Tx team em phasized importance of proper stabilization in order for pt. to be able to confront stressors in the community. Pt. receptive to feedback and expressed motivation for tx. Medication recommendations discussed at length. Pt. agreeable. Pt. provided consent for gag writer to contact [facility]. Discussed with Family/SO: No Was Patient/Family/SO present at Treatment Team Meeting: Yes <Rach Webster - Last Filed: 03/03/19 12:43> - Diagnosis (1) Schizoaffective disorder Status: Acute Interventions: 03/03/19 12:42 start prozac and risperidone (2) Depression Status: Acute Interventions: 03/03/19 12:43 increase dose of prozac
[2019-03-01] MEDS ORDERED: FLUoxetine Elix 20 MG/5 ML PO STA (14:21)
--- NOTE | 2019-03-01 14:42 | PCM.PSYCH ---
Initial Psychiatric Evaluation - Initial Psychiatric Evaluation Legal Status: Capacity Chief Complaint (in patient's own words): I am so anxious about being homeless History of Present Illness and Precipitating Events: pt is 34 ys old male with previous diagnosis of schizoaffective disorder brought to ER by ICMS worker after expressing suicidal ideation pt reported he has been increasingly depressed as his patel mack has been sick in the hospital, loosing work hours resulting in financial difficulties and the fear of being evicted reported depressed mood low energy anhedonia, poor motivation and passive suicidal ideation without active plan on the unit denied command hallucinations Current Medications: Active Medications Generic Name Dose Route Start Last Admin Trade Name Freq PRN Reason Stop Dose Admin Acetaminophen 650 mg 02/28/19 17:02 Tylenol 325mg Tab PO Q4 PRN Pain, moderate (4-7) Al Hydrox/Mg Hydrox/Simethicone 30 ml 02/28/19 17:02 Maalox Plus 30 Ml PO Q4 PRN Dyspepsia Diphenhydramine HCl 50 mg 02/28/19 17:02 Benadryl IM Q6 PRN Extrapyramidal S/S Unable PO Diphenhydramine HCl 50 mg 02/28/19 17:02 Benadryl PO Q6 PRN Extrapyramidal Symptoms Fluoxetine HCl 40 mg 03/01/19 09:00 03/01/19 13:09 Prozac PO 40 mg DAILY LEMA Administration Haloperidol 5 mg 02/28/19 17:02 Haldol PO Q4 PRN Agitation Haloperidol Lactate 5 mg 02/28/19 17:02 Haldol IM Q4 PRN Agitation, Unable to Take PO Lorazepam 2 mg 02/28/19 17:02 Ativan IM Q4 PRN Anxiety/Agitation,Unable PO Lorazepam 2 mg 02/28/19 17:02 Ativan PO Q4 PRN Anxiety/Agitation Magnesium Hydroxide 30 ml 02/28/19 17:02 Milk Of Magnesia PO HS PRN Constipation Risperidone 3 mg 02/28/19 22:00 02/28/19 21:16 Risperdal Tab PO 3 mg HS ELMA Administration Past Psychiatric History - Past Psychiatric History Explanation of prior treatment: multiple hospitalizations, 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 Pertinent Medical Hx (Current Medical&Sleep Prob, Allergies): Allergies Allergy/AdvReac Type Severity Reaction Status Date / Time No Known Allergies Allergy Verified 02/04/19 00:57 Fluoxetine HCl [Prozac] 40 mg PO QPM 02/28/19 Risperidone [Risperdal] 3 mg PO HS 02/28/19 Mental Status Examination - Personal Presentation Personal Presentation: Looks stated age - Affect Affect: Constricted, Depressed - Motor Activity Motor Activity: Psychomotor Retardation - Reliability in Providing Information Reliability in Providing Information: Fair - Speech Speech: Relevant - Mood Mood: Depressed, Anxious - Formal Thought Process Formal Thought Process: Circumstantial - Cognitive Functions Orientation: Person, Place Sensorium: Alert Abstract Thinking: [place] Judgement: Imparied, as evidence by: Poor judgement - Risk Risk: Suicidal, Diminished functioning - Strength & Assets Inventory Strength & Assets Inventory: Life experience - Limitations Additional comments: financial difficulties DSM 5 DX - DSM 5 DSM 5 Diagnosis: schizoaffective disorder depressed - Recommended/Plan of Treatment Treatment Recommendations and Plan of Treatment: prozac 40mg daily risperidone 3mg qhs cbt group and supportive therapy
--- NOTE | 2019-03-02 11:51 | PCM.PYCHPN ---
Psychiatric Progress Note - Psychiatric Progress Note Patient seen today, length of contact: pt evaluated discussed with team chart reviewed Patient Chief Complaint: I could not even see my mother Problems Identified/Issues Discussed: pt seen in his room, unkempt, not attending to personal hygiene, low energy poor motivation, speech soft and slow , anhedonia,isolates himself in the room reported has no motivation, continues to report passive suicidal ideation w ithout active plan on the unit , discussed increasing dose of prozac, CBT provided, pt denied command hallucinations Medical Problems: multiple hospitalizations, 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 Symptoms Update: schizoaffective disorder depressed Medication Change: Yes (increase prozac) Medical Record Reviewed: Yes Mental Status Examination - Cognitive Function Orientation: Person, Place Attention: WNL Concentration: Poor Association: WNL Fund of Knowledge: Poor Decription of patient's judgement and insights: partial insight fair judgment - Mood Mood: Depressed, Anxious - Affect Affect: Constricted, Depressed - Speech Speech: Soft - Formal Thought Process Formal Thought Process: Hallucinations, Circumstantial - Suicidal Ideation Suicidal Ideation: Yes - Homicidal Ideation Homicidal Ideation: No Goal/Treatment Plan - Goal/Treatment Plan Need for Continued Stay: Remain at risks for inpatient hospitalization, Severe depression anxiety, Discharge may exacerbated symptoms Progress Toward Problem(s) and Goals/Treatment Plan: prozac 40mg daily/ increase gradually risperidone 3mg qhs cbt group and supportive therapy
--- NOTE | 2019-03-03 12:46 | PCM.PYCHPN ---
Psychiatric Progress Note - Psychiatric Progress Note Patient seen today, length of contact: pt evaluated discussed with team chart reviewed Patient Chief Complaint: I am worried abiut my housing situation Problems Identified/Issues Discussed: pt seen in his room, continues to be unkempt, , not attending to his personal hygiene unkempt, poor motivation and low energy speech soft and slow , anhedonic ,isolates himself in the room continues to report passive suicidal ideation without active plan on the unit , no reported side effects with the increase dose of prozac, CBT provided, pt denied command hallucinations Medical Problems: multiple hospitalizations, 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 Symptoms Update: schizoaffective disorder depressed Medication Change: No (increase prozac) Medical Record Reviewed: Yes Mental Status Examination - Cognitive Function Orientation: Person, Place Attention: WNL Concentration: Poor Association: WNL Fund of Knowledge: Poor Decription of patient's judgement and insights: partial insight fair judgment - Mood Mood: Depressed, Anxious - Affect Affect: Constricted, Depressed - Speech Speech: Soft - Formal Thought Process Formal Thought Process: Hallucinations, Circumstantial - Suicidal Ideation Suicidal Ideation: Yes - Homicidal Ideation Homicidal Ideation: No Goal/Treatment Plan - Goal/Treatment Plan Need for Continued Stay: Remain at risks for inpatient hospitalization, Severe depression anxiety, Discharge may exacerbated symptoms Progress Toward Problem(s) and Goals/Treatment Plan: prozac 60mg daily/ risperidone 3mg qhs cbt group and supportive therapy
--- NOTE | 2019-03-03 14:39 | CP.PCM.CON ---
History of Present Illness - History of Present Illness History of Present Illness: 34 yo male with history of schizoaffective DO admitted to psyche unit because of suicidal ideation. Review of Systems - Review of Systems All systems: reviewed and no additional remarkable complaints except (aside from those mentioned above, 12 point system review were negative by me) Past Patient History - Infectious Disease Hx of Infectious Diseases: None - Past Social History Alcohol: None Drugs: Denies - CARDIAC Hx Hypercholesterolemia: Yes Hx Hypertension: No - PULMONARY Hx Tuberculosis: No - NEUROLOGICAL Hx Seizures: No - HEENT Hx HEENT Problems: Yes - RENAL Hx Chronic Kidney Disease: No - ENDOCRINE/METABOLIC Hx Endocrine Disorders: No - HEMATOLOGICAL/ONCOLOGICAL Hx Human Immunodeficiency Virus (HIV): No - INTEGUMENTARY Hx Dermatological Problems: No - MUSCULOSKELETAL/RHEUMATOLOGICAL Hx Musculoskeletal Disorders: Yes - GASTROINTESTINAL Hx Gastrointestinal Disorders: No - GENITOURINARY/GYNECOLOGICAL Hx Sexually Transmitted Disorders: No - PSYCHIATRIC Hx Anxiety: Yes Hx Depression: Yes Hx Schizophrenia: Yes - SURGICAL HISTORY Hx Surgeries: No - ANESTHESIA Hx Anesthesia: Yes Meds Allergies/Adverse Reactions: Allergies Allergy/AdvReac Type Severity Reaction Status Date / Time No Known Allergies Allergy Verified 02/04/19 00:57 - Medications Medications: Current Medications Acetaminophen (Tylenol 325mg Tab) 650 mg PO Q4 PRN PRN Reason: Pain, moderate (4-7) Al Hydrox/Mg Hydrox/Simethicone (Maalox Plus 30 Ml) 30 ml PO Q4 PRN PRN Reason: Dyspepsia Diphenhydramine HCl (Benadryl) 50 mg IM Q6 PRN PRN Reason: Extrapyramidal S/S Unable PO Diphenhydramine HCl (Benadryl) 50 mg PO Q6 PRN PRN Reason: Extrapyramidal Symptoms Fluoxetine HCl (Prozac) 60 mg PO DAILY [facility] Last Admin: 03/03/19 08:59 Dose: 60 mg Haloperidol (Haldol) 5 mg PO Q4 PRN PRN Reason: Agitation Haloperidol Lactate (Haldol) 5 mg IM Q4 PRN PRN Reason: Agitation, Unable to Take PO Lorazepam (Ativan) 2 mg IM Q4 PRN PRN Reason: Anxiety/Agitation,Unable PO Lorazepam (Ativan) 2 mg PO Q4 PRN PRN Reason: Anxiety/Agitation Magnesium Hydroxide (Milk Of Magnesia) 30 ml PO HS PRN PRN Reason: Constipation Risperidone (Risperdal Tab) 3 mg PO HS [facility] Last Admin: 03/02/19 21:02 Dose: 3 mg Physical Exam - Constitutional Appears: No Acute Distress - Head Exam Head Exam: ATRAUMATIC - Eye Exam Eye Exam: absent: Scleral icterus - ENT Exam ENT Exam: Mucous Membranes Moist - Neck Exam Neck exam: Negative for: Meningismus - Respiratory Exam Respiratory Exam: absent: Prolonged Expiratory Phase, Rales, Rhonchi, Wheezes - Cardiovascular Exam Cardiovascular Exam: REGULAR RHYTHM, +S1, +S2 - GI/Abdominal Exam GI & Abdominal Exam: Soft. absent: Tenderness - Rectal Exam Rectal Exam: Deferred - Extremities Exam Extremities exam: Negative for: pedal edema Results - Vital Signs Recent Vital Signs: Last Vital Signs Temp 98.5 F 03/03/19 09:00 Pulse 85 03/03/19 09:00 Resp 18 03/03/19 09:00 BP 123/78 03/03/19 09:00 Pulse Ox 95 02/28/19 18:40 - Labs Result Diagrams: 02/28/19 12:48 02/28/19 12:48
--- NOTE | 2019-03-04 11:29 | PCM.PYCHPN ---
Psychiatric Progress Note - Psychiatric Progress Note Patient seen today, length of contact: Pt evaluated, case discussed w/ team, chart reviewed Patient Chief Complaint: Depression Problems Identified/Issues Discussed: Patient reports that he feels less depressed. He continues to have depressed/constricted affect. He continues to isolate himself, but is more engaged in the community than when he was admitted. No acute AH/VH/SI/HI reported. Medication Change: No Medical Record Reviewed: Yes Consults ordered or reviewed: Medicine consult Mental Status Examination - Cognitive Function Orientation: Person, Place, Situation, Time Memory: Intact Attention: WNL Association: WNL Decription of patient's judgement and insights: Improving I/J - Mood Mood: Depressed, Anxious - Affect Affect: Constricted, Depressed - Speech Speech: Soft - Formal Thought Process Formal Thought Process: Circumstantial Psychotic Thoughts and Behaviors: Denies acute AH/VH/paranoia - Suicidal Ideation Suicidal Ideation: No - Homicidal Ideation Homicidal Ideation: No Goal/Treatment Plan - Goal/Treatment Plan Need for Continued Stay: Remain at risks for inpatient hospitalization, Severe depression anxiety, Discharge may exacerbated symptoms Progress Toward Problem(s) and Goals/Treatment Plan: Schizoaffective Disorder -Continue current medications -Medicine consult -Individual and group therapy -Psychoeducation -Disposition planning
--- NOTE | 2019-03-05 14:53 | PCM.PYCHPN ---
Psychiatric Progress Note - Psychiatric Progress Note Patient seen today, length of contact: Pt evaluated, case discussed w/ team, chart reviewed Patient Chief Complaint: I feel better today Problems Identified/Issues Discussed: pt evaluated , more kempt, presenting with brighter affect, reported feeling less depressed woth the increase in prozac, pt also reported feeling better after a visit from his ICMS worker and receiving help with his current financial situation as she would help him to apply for social benefits, pt denied side effects of medications, denied suicidal or homicidal ideation Medical Problems: multiple hospitalizations, 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 Symptoms Update: schizoaffective disorder depressed Medication Change: No Medical Record Reviewed: Yes Mental Status Examination - Cognitive Function Orientation: Person, Place, Situation, Time Memory: Intact Attention: WNL Association: WNL - Mood Mood: Anxious - Affect Affect: Constricted - Speech Speech: Appropriate, Soft - Formal Thought Process Formal Thought Process: Circumstantial - Suicidal Ideation Suicidal Ideation: No - Homicidal Ideation Homicidal Ideation: No Goal/Treatment Plan - Goal/Treatment Plan Need for Continued Stay: Remain at risks for inpatient hospitalization, Severe depression anxiety, Discharge may exacerbated symptoms Progress Toward Problem(s) and Goals/Treatment Plan: prozac 60mg daily/ risperidone 3mg qhs cbt group and supportive therapy
[2019-03-06 09:51] VITALS: BP 118/73; PULSE 54; RESP 18; TEMP 98.4
--- NOTE | 2019-03-06 14:02 | PCM.PYCHDC ---
Mental Status Examination - Mental Status Examination Orientation: Person, Place, Situation Memory: Intact Mood: Neutral Affect: Broad Speech: Appropriate Attention: WNL Concentration: WNL Association: WNL Fund of Knowledge: WNL Formal Thought Process: No Impairment Description of patient's judgement and insight: partial insight fair judgment Psychotic Thoughts and Behaviors: pt denied any current psychotic symptoms non elicited Suicidal Ideation: No Current Homicidal Ideation?: No Discharge Summary - Discharge Note Reason for Hospitalization: pt is 34 ys old male with previous diagnosis of schizoaffective disorder brought to ER by ICMS worker after expressing suicidal ideation pt reported he has been increasingly depressed as his patel mack has been sick in the hospital, loosing work hours resulting in financial difficulties and the fear of being evicted reported depressed mood low energy anhedonia, poor motivation and passive suicidal ideation without active plan on the unit denied command hallucinations Consultations:: List each consultation separately and include: 1. Reason for request. 2. Findings. 3. Follow-up Summary of Hospital Course include:: 1. Description of specific treatment plan utilized for patients during their course of treatmen. 2. Summarize the time- course for resolution of acute symptoms and/or regressed behaviors. 3. Describe issues identified and worked on during hospitalization. 4. Describe medication utilized. 5. Describe medical problems identified and treated. 6. Reassessment of suicide risk Summary of Hospital Course: pt on admission presented with depressed mood and affect , pt was started on prozac 40mg it was increased to 60mg daily pt was also started on risperidone 3mg group and supportive therapy provided, pt was compliant with treatment attended groups on discharge mental status was stable, pt denied suicidal or homicidal ideation denied perceptual disturbances - Diagnosis (1) Schizoaffective disorder Current Visit: Yes Status: Acute (2) Depression Current Visit: No Status: Acute - Final Diagnosis (DSM 5) Condition upon Discharge: STABLE DSM 5: schizoaffective disorder depressed Disposition: HOME/ ROUTINE Follow-up Treatment Plan: prozac 60mg daily/ risperidone 3mg qhs cbt group and supportive therapy Prescriptions/Medication Reconciliation: FLUoxetine [Prozac] 60 mg PO DAILY 90 Days #270 cap risperiDONE [RisperDAL Tab] 3 mg PO HS 90 Days #90 tab - Antipsychotic Medications Pt discharged on 2 or more routine antipsychotic medications: No
--- NOTE | 2019-03-07 06:13 | CARD ---
APPROVED REPORT Date of service: 02/28/2019 EKG Measurement Heart [id number] <Conclusion> Sinus bradycardia Otherwise normal ECG
== END 2019-03-06 14:44 | disposition home or self-care (01) | DRG 750 ==
LOC: H.ER 10:50 → SUPCPDRO 10:50 → H.ERHOLD 14:43 → H.PSYCH 16:25
PROVIDERS: ADMIT Psychiatry & Neurology Psychiatry; ATTEND Psychiatry & Neurology Psychiatry
PROC: GZHZZZZ Group Psychotherapy (ICD-10-PCS; principal; 2019-02-28)
PROC: GZ58ZZZ Individual Psychotherapy, Cognitive-Behavioral (ICD-10-PCS; 2019-02-28)
DX: F25.1 Schizoaffective disorder, depressive type (principal); R45.851 Suicidal ideations; F41.9 Anxiety disorder, unspecified; M41.9 Scoliosis, unspecified; E78.5 Hyperlipidemia, unspecified; E78.00 Pure hypercholesterolemia, unspecified; Z59.0 Homelessness